=== PATIENT | female | born 1960 | race Caucasian/White ===

== ENCOUNTER 2017-09-07 15:26 | Inpatient (IN) | payer OTHER ==
[2017-09-07] MEDS ORDERED: hydrOXYzine HCL 25 MG TAB PO PRN (18:04)
[2017-09-07] MEDS ORDERED: ACETAMINOPHEN 500 MG TAB PO PRN (18:06)
[2017-09-07] MEDS ORDERED: ONDANSETRON 4 MG/2 ML VIAL IVP PRN (18:06)
[2017-09-07] MEDS ORDERED: HYDROmorphone HCL/NS 0.5 MG/ML SYR IVP PRN (18:06)
[2017-09-07] MEDS: oxyCODONE IR 5 MG TAB PO PRN ×2 (18:33→22:30)
--- NOTE | 2017-09-07 19:23 | GHP ---
[f rep st] HISTORY AND PHYSICAL DATE OF ADMISSION: 09/07/2017 CHIEF COMPLAINT: Jaundice. HISTORY: The patient is a 57-year-old female who was diagnosed with breast cancer 10 years ago. She underwent a lumpectomy. Tamoxifen was recommended, but she had a very difficult time tolerating it due to side effects. She has been getting mammograms every 6 months and had a clean mammogram 1 year ago. About 2 weeks ago, she did notice some abdominal GI upset and new onset jaundice. She was subsequent ly found to have extensive liver metastases, as well as widely metastatic bone tumors. She underwent a liver biopsy last Tuesday at [facility] and pathology is still pending. She has also been found to have tumors in her bilateral breasts. She underwent an ERCP at [facility] with Dr. Madrigal, an d had a bile duct stent. Her bilirubin started at 12, went down to 10, but is now back up to 13. Leslie regalado does not have any bone pain, except for in her head and neck, and she has been using oxycodone. She was directly admitted by Dr. Garcia today because he needs to get her bilirubin down lower in or godfrey to initiate chemotherapy. He is consulting Dr. Annemarie Pugh to see the patient regarding any surg ical options to improve her bilirubin. Yesterday she noticed a new difficulty with speech as well as increasing numbness on the left side of her face and mouth. Dr. Garcia recommends MRI of the brain as there is high suspicion for brain me tastases. PAST MEDICAL HISTORY: Breast cancer 10 years ago status post lumpectomy, tamoxifen poorly tolerated due to side affects, has been followed very closely since then for recurrence. MEDICATIONS: Please see computer record for full detailed list. ALLERGIES: Quinolones and sulfa. SOCIAL HISTORY: She smoked from age [age]. She drinks 2-3 glasses of wine per day. She lives with her . Her is from [place], and they were living there, moved back to the [place] 3 years ago. She has 2 children, ages 22 and 19. 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 REVIEW OF SYSTEMS: Complete review of systems obtained. Review of systems negative for constitution al, HEENT, GI, pulmonary, cardiovascular, , hematology, skin, muscular, endocrine, psych, except fo r positives as per HPI. FAMILY HISTORY: Reviewed, noncontributory to presenting complaint. PHYSICAL EXAMINATION: GENERAL: Well-developed, well-nourished female, no acute distress. VITAL SIG NS: Temperature is 36.6, pulse 94, blood pressure 136/83, saturating 96% on room air. EYES: Sclera l icterus. Pupils equal and reactive to light. ENT: Normal ears and nose. Hearing intact. Some p ossible oral thrush. Oropharynx is moist. NECK: Trachea midline. No thyromegaly. CHEST: Normal respiratory effort. LUNGS: Clear to auscultation bilaterally. CARDIOVASCULAR: Regular rhythm. No murmur. EXTREMITIES: No lower extremity edema. ABDOMEN: Soft, nontender. I do not appreciate mu ch hepatomegaly. SKIN: Jaundiced. Otherwise without rash or wound. MUSCULOSKELETAL: No cyanosis or clubbing. NEUROLOGICAL: Strength is 5/5 upper and lower extremities. Cranial nerves: Her tongu e has a very remarkable deviation to the right and there is some numbness on the left side of her fac e. No other numbness throughout. PSYCH: Alert and oriented x3. Normal mood, affect. Normal judgm ent, insight. Normal memory. 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 LABORATORY DATA: White count 8.78, hematocrit 34.5, platelets 404. Sodium 138, potassium 4.1, chlor dale 105, bicarb 20, BUN 13, creatinine 0.6, glucose 104, AST 73, ALT 77. Total bilirubin 15.3, conju gated bilirubin 13.4. Viral hepatitis panel is negative. This case was discussed with Dr. Mitch Garcia regarding inpatient plan. PLAN/ASSESSMENT: 1. Elevated bilirubin. The goal of hospitalization is to get the bilirubin down so that Dr. Garcia can initiate chemotherapy. She has already undergone ERCP with biliary stent placement by Dr. Paul hansen at [facility]. We may need to consult our Gastroenterology group, but first we will consult Dr. Samm rhodes to see if there are any surgical options. 2. Liver and bone metastases which is suspected to be recurrence of breast cancer. Biopsy from [facility] is still pending. Dr. Sheets has been called to see her in consultation. 3. Tongue deviation and dysarthria. This his highly concerning for brain metastases. We will check an MRI of the brain. Depending on finding, we may need to initiate IV Decadron. CODE STATUS: Full. ADMISSION STATUS: 1. Will admit to inpatient as she is medically complex. Anticipate greater than 2 midnights require d for stabilization. 2. DVT prophylaxis. She is high risk and Lovenox should be initiated once any chance of procedures is ruled out. /[id number]/MODL
[2017-09-07] MEDS ORDERED: GADOBUTROL 10 ML VIAL IVP ONE (20:16)
[2017-09-07] MEDS: NYSTATIN SUSP 500000 UNIT/5 ML UDCUP PO SCH (21:41)
[2017-09-08] MEDS: hydrOXYzine HCL 25 MG TAB PO PRN ×3 (01:28→21:47)
[2017-09-08] MEDS: NYSTATIN SUSP 500000 UNIT/5 ML UDCUP PO SCH ×4 (05:39→21:47)
[2017-09-08] MEDS: oxyCODONE IR 5 MG TAB PO PRN ×4 (05:39→21:48)
[2017-09-08 06:54] LABS: PLATELET COUNT 395 10^3/uL (150-400)
[2017-09-08 06:59] LABS: INR 0.87 (0.83-1.16)
[2017-09-08] MEDS ORDERED: ENOXAPARIN 40 MG/0.4 ML SYR SC SCH (09:00)
[2017-09-08] MEDS: buPROPion XL 150 MG TAB PO SCH (09:44)
[2017-09-08] MEDS: DULoxetine 30 MG CAP PO SCH (09:44)
[2017-09-08] MEDS: Desvenlafaxine Succinate [Pristiq] 25 MG PO SCH (09:44)
--- NOTE | 2017-09-08 10:51 | GCON ---
[f rep st] CONSULTATION CHIEF COMPLAINT: Metastatic cancer. HISTORY OF PRESENT ILLNESS: The patient is a 57-year-old woman with a history of breast cancer approximately 10 years ago. She was treated with lumpectomy. She was unable to tolerate tamoxifen. Approximately 2 weeks ago, she developed jaundice and began workup for her jaundice. In retrospect, she has also had pain on her left neck, going up to her head, as well as shifting more often in her chair. She had workup starting at [facility], which included an ultrasound and a CT scan. On the CT scan, it showed intrahepatic ductal dilatation. It showed tapering near the shaina and about 10-15 liver metastases. Her gallbladder is surgically absent. She was admitted to [facility], and Dr. Hunter Madrigal performed an ERCP. The ERCP report showed that there was possible extrinsic compression with resultant partial intrahepatic biliary obstruction. He did a sphincterotomy and placed a 10-[place] 12 cm [place] stent across the shaina into the right hepatic lobe and a 7-[place] 9 cm [place] stent across the shaina. Her bilirubin initially went from 12 down to 10, but it is now elevated again. She was directly admitted to the hospital by Dr. Garcia. I was consulted to see if there was a surgical option for her. In addition, last night, she also had a brain MRI, which showed likely osseous metastatic disease in the upper cervical spine and the clivus. No infarct, subtle asymmetric meningeal enhancement on the right side, and then there is an unusual asymmetric focus in the anterior right middle cranial fossa. Her LFTs, today, the total bilirubin 13.9, conjugated 12.2, AST 94, ALT 106, alkaline phosphatase 1609. Her lipase is normal. PAST MEDICAL HISTORY: Breast cancer. PAST SURGICAL HISTORY: Lumpectomy. ALLERGIES: Quinolones and sulfa. SOCIAL HISTORY: She smoked from ages [age]. She does drink wine daily. She lives with her . REVIEW OF SYSTEMS: She is complaining of dysarthria. Ten-point review of systems negative, except per HPI. PHYSICAL EXAMINATION: VITAL SIGNS: 36.7, 77, 109/71, 16, 94% on room air. GENERAL: Pleasant, well-nourished, well-groomed woman sitting up in bed. HEENT : Scleral icterus. Pupils equal and round. Normocephalic. Mucous membranes moist. No gross hearing deficits. NEURO: To me, she is not dysarthric, although the patient is complaining of her tongue feeling different. LUNGS: Clear to auscultation bilaterally. No increased work of breathing. CARDIAC: Regular rate. No peripheral edema. ABDOMEN: Her bowel sounds are present. She is soft. She is nontender. SKIN: Jaundice. She also has a few tattoos. PSYCHIATRIC: Upbeat mood and affect, despite prognosis. Results reviewed. Please see HPI. IMPRESSION AND PLAN: A 57-year-old woman with elevated bilirubin. This could be metastatic disease due to her breast cancer vs a new primary. The pathology at [facility] is still pending. I personally discussed the case with Dr. Ashlyn Sheets, who will call the pathologist at [facility]. I also discussed the case with Dr. Greer. We will order a HIDA scan. This will help us know if there is filling in the duodenum, as well as uptake in the liver. I personally reviewed her images from [facility], as well as her PET-CT from [facility] yesterday. I can see the liver metastasis. I did not see a large external compression at the shaina. I would like to explore other options because this may not be an external issue creating her elevated bilirubin. I am concerned that if I take her to the operating room, this would be an open surgery and have increased healing time, which could delay chemotherapy. Furthermore, without a specific target, this also may not be helpful. Surgery may be needed in the future. I have also put in a call to Dr. Alarcon, and with the information from the HIDA scan, another option may be an internal-external drain. The other option may be a chemotherapy that is not hepatically metabolized. She clearly has liver and bone metastases and possible issues with meningeal enhancement. I will continue to follow. I did holy cross back with the patient and let her know that I personally reviewed the images from [facility], information from [facility], including the ERCP report, the PET scan from [facility]. Dr. Greer is also going to discuss the case with Dr. De Anda and possibly set up for another ERCP and see if the left hepatic duct can be stented. I will be on standby /[id number]/MODL MTDD
--- NOTE | 2017-09-08 10:55 | PDMN ---
Medical Necessity Medical necessity: Patient meets inpatient criteria per physician note and [facility] [place] [facility] (previously diagnosed breast cancer 10 years ago, recently discovered extensive hepatic and osseous metastatic disease, now w/new onset speech difficulty, L face/mouth numbness, tongue deviation; elevated bilirubin/ hoping to decrease to initiate chemotherapy; anticipated LOS > 2 midnights for poss brain mets, HIDA scan, surgical consult, hopefully initiation of chemotherapy.)
[2017-09-08] MEDS: [UNRECOGNIZED DRUG - OTHER] PO SCH (11:36)
[2017-09-08] MEDS ORDERED: ALTEPLASE 2 MG VIAL IVP PRN (11:37)
--- NOTE | 2017-09-08 11:56 | ASMTCMCOM ---
CM Note CM Note Notes: Pt admitted w/elevated bilirubin and per H&P found to have liver and bone metastases. Liver bx done at [facility] recently and pending. She has hx of breat cancer 10 years ago. She is also found to have bilat breast tumors per H&P. She is still being worked up; will get PICC today, have hida scan, and LP. Pt lives at home w/, has 2 kids- ages 22, 19. DC needs to be determined. CM will follow. Date Signed: 09/08/2017 11:55 AM Electronically Signed By:Charis Smith RN
[2017-09-08] MEDS ORDERED: [UNRECOGNIZED DRUG - OTHER] IV SCH (12:00)
[2017-09-08] MEDS ORDERED: MAGNESIUM SULFATE IV SCH (12:00)
[2017-09-08] MEDS ORDERED: KCL IV SCH (12:00)
[2017-09-08] MEDS ORDERED: NS W IV SCH (12:00)
--- NOTE | 2017-09-08 13:07 | GCON ---
[f rep st] CONSULTATION NEW PATIENT CONSULT PRIMARY ONCOLOGIST: Dr. Mitch Garcia. REASON FOR CONSULTATION: Patient with possible metastatic breast cancer, admitted for hyperbilirubinemia. HISTORY OF PRESENT ILLNESS: Patient is a 57-year-old postmenopausal woman who was originally seen by Dr. Mitch Garcia on August 30, 2017. Patient's PCP, Dr. Prakash Alcala, referred patient to Dr. Mitch Garcia early in August. She was seen on an urgent basis. The patient reports she began to have symptoms she attributed to gas and indigestion June of 2017. Approximately 3 weeks prior to presentation, she began to have itching and then noticed that she had become somewhat jaundice. She also noticed that her urine has become very orange and her stools had become very light color. She was evaluated with an ultrasound and CT scan showing multiple hepatic metastases and bony metastases also, although the patient did not complain of any pain. She had had a 7 kg weight loss over the past several weeks, and appetite had been poor with early satiety. She reported to Dr. Garcia that 10 years prior, she had breast cancer in her right breast. 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 This was treated with a lumpectomy and a reduction on the left. She also reports she had a sentinel lymph node biopsy which was negative. She did not have any radiation and was not offered any chemotherapy and she took tamoxifen for only 2-3 months due to side effects. She was referred to Dr. Hunter Madrigal who arranged for a liver biopsy. This was done at [facility] on 08/31/2017, that showed poorly differentiated adenocarcinoma. Tumor cells expressed espinoza cytokeratin and GATA3. They do not express mammaglobin or GCDFP 15, although these findings are nonspecific. Pathology thought patient's history of breast cancer favored metastatic breast carcinoma. ER/ME, Ki-67, and HER2 by FISH are currently pending, unfortunately. Patient notes that her last mammogram was done through [facility] last year and was reportedly normal. Patient followed up with Dr. Garcia on 09/07/2017. She also had undergone an ERCP on 09/02/2017, due to rising bilirubin. She had a stent placed in her liver across a possible obstruction, although not certain that this was extrinsic. Dr. Madrigal with GI said it was a difficult procedure and that he believed the 2 stents he placed were in the right hepatic lobe and not the left. When patient saw Dr. Garcia yesterday, she was reporting some difficulty with speaking. She reports that her tongue is heavy and was having difficulty with speech. Dr. Garcia reviewed with the patient the PET-CT that was most recently done that showed bilaterally metabolically active lesions in the outer right and left breast which warranted further followup with ultrasound and diagnostic mammogram. Presumed diffuse metastatic disease to the spinal column, pelvis, bilateral proximal femurs, bilateral proximal humeri , bilateral scapula and sternum, a lytic lesion in the left acetabular roof, risk for pathologic fracture. No pathologic compression fractures. Six metabolically active liver lesions noted. Temporary biliary stent noted in good position. Suspect subtle metastasis to the left adrenal gland. The patient's bilirubin yesterday continued to trend up at 15.3, so patient was admitted for further workup and evaluation. PAST MEDICAL HISTORY: Breast cancer, right breast, approximately 10 years ago, treated in [facility]. Details are unclear at this time, but she did receive a lumpectomy with mammoplasty, as well as reduction mammoplasty on the left. No other significant past medical history. SOCIAL HISTORY: Former tobacco smoker. She currently lives in the [facility] between [place]. She is . Moderate alcohol use. No illicit drugs. FAMILY HISTORY: Grandmother with bladder cancer. Father with CLL, squamous cell carcinoma of the skin, and bladder cancer. Mother of lung cancer. No family history of melanoma. MEDICATIONS: Have been reviewed in the EMR and include Tylenol, bupropion, duloxetine, and p.r.n. pain medications. REVIEW OF SYSTEMS: GENERAL: Patient elicits weight loss. Denies fevers. HEENT: She does report some dysarthria and heavy tongue. LUNGS: She denies any shortness of breath or cough. GI: Denies any nausea, vomiting, or constipation. Denies any abdominal bloating. MUSCULOSKELETAL: Denies any acute bone pain. EXTREMITIES: Denies any lower extremity edema. PHYSICAL EXAM: VITAL SIGNS: Blood pressure 109/71, heart rate 77, respiratory rate 16, O2 saturation 94% on room air, temp is 36.7. GENERAL: A 57-year-old woman looks her stated age, not in acute distress. HEENT: Scleral icterus. Oropharynx is clear. HEART: Regular rate and rhythm. LUNGS: Clear to auscultation bilaterally. ABDOMEN: Soft. No enlarged spleen or liver. LOWER EXTREMITIES: No edema. BREAST: Performed today. I am feeling AN abnormal mass in the right breast upper quadrant almost central, as well as the right lower outer quadrant of the breast. I am also feeling A contralateral mass in the left breast upper outer quadrant. No associated axillary lymphadenopathy. NEUROLOGIC: Tongue deviates to the right and very mild dysarthria. Otherwise, she is moving all extremities. No other cranial nerve deficits. LABS: White blood cell count 7.2, hemoglobin 11.5, hematocrit 34.7, platelet count of 395,000. INR 0.87. Sodium 139, potassium 3.9, creatinine 0.7, total bilirubin 13.9, conjugated bilirubin 12.2. AST 94, ALT 106, alkaline phosphatase 1609, total protein 6, albumin 3.1, lipase 120. IMAGING: The patient has had a brain MRI here suspecting osseous metastatic disease with involvement of portions of the osseous calvarium, upper cervical spine, and possibly posterior clivus. No evidence of acute or subacute infarction. Appears to be some subtle asymmetric meningeal enhancement, particularly on the right side, and unusual asymmetric focus of blooming artifact in the anterior right middle cranial fossa of uncertain significance. ASSESSMENT AND PLAN: A 57-year-old woman with a history of early stage breast cancer who now presents with diffuse liver metastases showing poorly differentiated adenocarcinoma, who presents with hyperbilirubinemia. 1. Hyperbilirubinemia. This is somewhat acute. Patient had an endoscopic retrograde cholangiopancreatography with stenting in the right hepatic lobe, but bilirubin continues to rise. There is no large external compression at the shaina hepatis by previous scans. I would imagine this is all diffuse intrinsic obstruction due to liver metastases in general. Have discussed her case with Dr. Annemarie Gregg. I am not sure an internal/external drain will be that much help, although possible. I think mainstay of treatment right now should be chemotherapy for the visceral disease to see if we could reverse the liver dysfunction. While we are pending final pathology, my plan would be to start her at cisplatin 75 mg/m2 over 2 days for tolerability and will pre and post hydrate, as well as give pre and post electrolytes. She will need a peripherally inserted central catheter line placed today which has been ordered. Will follow her cautiously in the hospital and see if her bilirubin starts to decline and can tailor treatment appropriately. 2. Presumed metastatic breast cancer. Reviewed pathology myself from [facility] showing a poorly differentiated adenocarcinoma. ER/ME, Ki-67, and HER2 by FISH pending. This certainly does fit the picture of metastatic breast cancer, although very aggressive acutely. PET-CT shows no other obvious sources of primary. She has bilateral breast masses with SUV uptake. While we are waiting for liver biopsy, I think important to get a biopsy of one of the breast masses to make sure it is concordant with the final pathology from the liver and will hope to arrange this today. She will need a mammogram with ultrasound guided biopsy if we can arrange. 3. Dysarthria and abnormality on MRI. Very concerning for leptomeningeal disease. Will need an LP for cerebrospinal fluid with cytology. I think there is a high likelihood of LP dz but another thought would be to look at a facial MRI to see if there are any bony osseous metastases that are possibly entrapping a cranial nerve - I have seen this presentation a few times as well. With isolated cranial neuropathy, if she was discovered to have leptomeningeal disease, I would favor cranial irradiation alone. She has no lower extremity weakness or bladder or bowel dysfunction to suggest spinal dz and could possibly avoid lumbosacral spine radiation as of now, but at some point during her hospitalization, I would get an MRI of the cervical, thoracic, and lumbar spine. Once we get all procedures done today, we will move forward later today or early in the morning with the initiation of chemotherapy. Patient and are well informed, had good questions. Over an hour and a half was spent with patient, more than 50% of the time counseling and coordinating care, discussion with Alexis, as well as Dr. Gregg. /[id number]/MODL MTDD
[2017-09-08] MEDS ORDERED: LIDOCAINE 1% 300 MG/30 ML SDV ONE ×2 (13:27→14:17)
[2017-09-08] MEDS: POTASSIUM CL IV SCH (13:30)
[2017-09-08] MEDS: MAGNESIUM SULFATE IV SCH (13:30)
[2017-09-08] MEDS: NS IV SCH (13:30)
--- NOTE | 2017-09-08 14:40 | HOSPPROG ---
Hospitalist Progress Note Assessment/Plan: 57y female directly admitted for further workup and treatment regarding abnormal liver function. First encounter, chart reviewed. D/W Dr Benjamin and radiology. # hyperbilirubinemia -HIDA shows patent stents -appreciate Dr. Cano consult -PICC line -liver biopsy pending -likely related to metastatic disease -will need chemotherapy # presumed metastatic breast cancer -will need breast biopsy -mammographies ordered -discussed with Radiology # abnormal MRI of brain -LP today -concern for metastatic process # disposition -unclear -patient needs multiple diagnostic studies -continue supportive care -likely initiate chemotherapy per Oncology Subjective: Feeling overwhelmed. at bedside. Objective: Vital Signs Temp Pulse Resp BP Pulse Ox 36.7 C 77 16 109/71 94 09/08/17 07:10 09/08/17 07:10 09/08/17 07:10 09/08/17 07:10 09/08/17 07:10 Laboratory Results 09/08/17 06:25 09/08/17 06:25 09/07/17 09/08/17 09/09/17 05:59 05:59 05:59 Intake Total 500 Balance 500 PT 12.0 SEC (12.0-15.0) 09/08/17 06:25 INR 0.87 (0.83-1.16) 09/08/17 06:25 - Physical Exam Constitutional: no apparent distress, appears nourished, not in pain Eyes: PERRL, EOMI, icteric sclera Ears, Nose, Mouth, Throat: moist mucous membranes, hearing normal, ears appear normal Cardiovascular: No JVD, No tachycardia, No edema Respiratory: no respiratory distress, no rales or rhonchi, clear to auscultation Gastrointestinal: tenderness, distension, No ascites Skin: warm, normal color, No mottled Musculoskeletal: normal joint ROM, no joint effusions, generalized weakness Neurologic: AAOx3 Psychiatric: interacting appropriately, not anxious, not encephalopathic, thought process linear ICD10 Worksheet Patient Problems: Problems Problem Status Onset Liver mass Acute - ICD10 Problem Qualifiers (1) Liver mass
--- NOTE | 2017-09-08 18:05 | SOAPPROG ---
BETHEL Progress Note Assessment/Plan: Assessment:Plan: see full dictated consult to follow 57 y/o female with possible obstructive jaundiced from metastatic disease ERCP images from [facility] do not show the left hepatic system only right system appears to be stented with plastic stents May need metal stent for palliation. ERCp and possible stent placement on Tuesday with Dr. Neetu Greer MD 09/08/17 18:01 Objective: Vital Signs Temp Pulse Resp BP Pulse Ox 36.4 C 82 17 133/81 H 93 09/08/17 17:12 09/08/17 17:12 09/08/17 17:12 09/08/17 17:12 09/08/17 17:12 Microbiology 09/08/17 14:20 Gram Stain - Final Cerebral Spinal Fluid Laboratory Results 09/08/17 06:25 09/08/17 06:25 09/07/17 09/08/17 09/09/17 05:59 05:59 05:59 Intake Total 500 Balance 500 PT 12.0 SEC (12.0-15.0) 09/08/17 06:25 INR 0.87 (0.83-1.16) 09/08/17 06:25 ICD10 Worksheet Patient Problems: Problems Problem Status Onset Liver mass Acute
[2017-09-09] MEDS: MAGNESIUM SULFATE IV SCH ×2 (00:37→21:55)
[2017-09-09] MEDS: NS IV SCH ×2 (00:37→21:55)
[2017-09-09] MEDS: POTASSIUM CL IV SCH ×2 (00:37→21:55)
[2017-09-09] MEDS: oxyCODONE IR 5 MG TAB PO PRN ×4 (01:48→22:06)
[2017-09-09] MEDS: hydrOXYzine HCL 25 MG TAB PO PRN ×2 (01:48→22:05)
[2017-09-09] MEDS: NYSTATIN SUSP 500000 UNIT/5 ML UDCUP PO SCH ×4 (08:11→21:55)
--- NOTE | 2017-09-09 10:06 | GCON ---
[f rep st] CONSULTATION DATE OF CONSULTATION: 09/08/2017 REFERRING PHYSICIAN: Josie Espinoza NP REQUESTING PROVIDERS: Josie Espinoza NP; Annemarie Pugh MD. REASON FOR CONSULTATION: Possible obstructive jaundice. 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 She was treated with tamoxifen for only a few months secondary to side effects and had no other issue with her disease until recently. Approximately 3-4 weeks prior to ad mission, she started to recognize pruritus and jaundice. Her stool became very light, and urine minh me very dark. She had an ultrasound and CT scan that showed multiple hepatic metastases and bony met astases. She was referred over to [facility] where Hunter Madrigal arranged for liver biopsy, wh ich revealed poorly differentiated adenocarcinoma. She underwent an ERCP on September 02 over at [facility] had stents placed near the shaina hepatis. Upon reviewing the images, it appears that they have onl y opacified the right biliary system and not the left biliary system. In addition, Dr. Madrigal thulises ght that he only placed 2 stents in the right hepatic lobe. She is going to be undergoing chemothera py in the near future for presumed metastatic breast cancer, and her elevated bilirubin would interfe re with some of the chemotherapy. We were contacted to help see if there is a possibility of stentin g of her biliary system to improve her bilirubinemia. She denies any pain. She has no fevers, chill s, or sweats. She has no shortness of breath. She has had approximately 15-pound weight loss over t he last couple months. I am now here to help evaluate and treat presumed obstructive jaundice. PAST MEDICAL HISTORY: Breast cancer, right breast, 10 years ago, treated in [facility]. PAST SURGICAL HISTORY: Lumpectomy, mammoplasty, reduction mammoplasty on the left. FAMILY HISTORY: Grandmother with bladder cancer. Father with CLL and squamous cell carcinoma of the skin and bladder cancer. Mother of lung cancer. She did not know of any colon cancer or colon polyps. SOCIAL HISTORY: She quit tobacco a number of years ago; she smoked tobacco up until age 20. She has moderate alcohol use. No illicit drugs. MEDICATIONS: At home included Tylenol, bupropion, duloxetine, and p.r.n. medications. In hospital, she is written for Tylenol p.r.n., Wellbutrin 150 mg daily, Cymbalta 30 mg daily, Lovenox 40 mg subcu daily, hydromorphone p.r.n., hydroxyzine p.r.n. itching, nystatin oral liquid 500,000 units p.o. q.i .d., Zofran p.r.n., oxycodone p.r.n. ALLERGIES: Quinolones and sulfa. REVIEW OF SYSTEMS: A complete review of systems was performed and is negative, other than noted in t he HPI. PHYSICAL EXAM: GENERAL: Well developed, well nourished, sitting in bed, in no acute distress. MARYLOU L SIGNS: Blood pressure 109/71, pulse 77, respirations 16, 94% on room air, temperature 36.7. EYES: Icteric, TSARR, EOMI. MOUTH: No lesions. NECK: Supple. Full range of motion. No JVD. BACK: N o spine tenderness. No CVA tenderness. LUNGS: Clear. CARDIAC: S1, S2. Regular rate and rhythm. No murmurs, rubs or gallops appreciated. ABDOMEN: Bowel sounds are normal in pitch and frequency. Abdomen was soft, nontender. No splenomegaly. EXTREMITIES: No cyanosis, clubbing, or edema. NEUR OLOGIC: Cranial nerves intact. SKIN: Jaundice, but no stigmata of advanced liver disease. LABORATORY DATA: From the , WBC 7.2, hemoglobin 11.5, hematocrit 34.7, platelet count 395. Pro time 12.0, INR 0.87. Sodium 139, potassium 3.9, chloride 103, bicarb 19, BUN 12, creatinine 0.7, tot al bilirubin 13.9, unconjugated 1.7, AST 94, ALT 106, alkaline phosphatase 1609, total protein 6.0, a lbumin 3.1, lipase 120. Brain MRI from September 07, 2017: Osseous metastatic disease. No evidence of ac reza or subacute infarction. Subtle asymmetric meningeal enhancement, particularly in the right side. CSF analysis may be considered for additional evaluation to include carcinomatosis. HIDA scan perf ormed September 08, 2016 shows that the contrast does reach the bowel within 11 minutes, persistent cardiac uptake on delayed series, which could be related to hepatic function or sequelae of poor biliary fercho inage. My review of the imported ERCP images show opacification of the right biliary system only and not of the left biliary system at all. The stents are plastic stents. They are not metal stents. ASSESSMENT: A 57-year-old female with probable metastatic breast cancer with hyperbilirubinemia and abnormal imaging studies consistent with biliary obstruction. RECOMMENDATIONS: 1. Trying to arrange ERCP with stenting of her left hepatic lobe and possible removal of the plastic stent in the right hepatic lobe and replacement with a metallic stent. 2. Treatment of her other medical illnesses per Oncology and hospitalists. 3. I have spoken to oncologist, who will hold on any chemotherapy pending the scheduling of ERCP and possible stent placement. Thank you for allowing me to participate in the patient's healthcare. Do not hesitate to call me wit h any questions. /[id number]/MODL
[2017-09-09] MEDS ORDERED: LIDOCAINE 1% 300 MG/30 ML SDV ONE (10:18)
[2017-09-09] MEDS: buPROPion XL 150 MG TAB PO SCH (11:49)
[2017-09-09] MEDS: DULoxetine 30 MG CAP PO SCH (11:49)
[2017-09-09] MEDS: Desvenlafaxine Succinate [Pristiq] 25 MG PO SCH (11:50)
[2017-09-09] MEDS: [UNRECOGNIZED DRUG - OTHER] PO SCH (12:14)
[2017-09-09] MEDS: ENOXAPARIN 40 MG/0.4 ML SYR SC SCH (12:14)
--- NOTE | 2017-09-09 13:16 | HOSPPROG ---
Hospitalist Progress Note Assessment/Plan: 57y female directly admitted for further workup and treatment regarding abnormal liver function. # hyperbilirubinemia -HIDA shows patent stents -appreciate Dr. Pugh consult -PICC line -liver biopsy pending -likely related to metastatic disease -will need chemotherapy -appreciate GI consult -ERCP today # presumed metastatic breast cancer -breast biopsy today -mammographies # abnormal MRI of brain -LP done -concern for metastatic process # disposition -unclear -patient needs multiple diagnostic studies -continue supportive care -likely initiate chemotherapy per Oncology Subjective: Feeling good. No pain. Not hungry. No specific issues. Objective: Vital Signs Temp Pulse Resp BP Pulse Ox 36.8 C 91 16 113/71 93 09/09/17 11:43 09/09/17 11:43 09/09/17 11:43 09/09/17 11:43 09/09/17 11:43 Microbiology 09/08/17 14:20 Gram Stain - Final Cerebral Spinal Fluid Laboratory Results 09/08/17 06:25 09/08/17 06:25 09/08/17 09/09/17 09/10/17 05:59 05:59 05:59 Intake Total 500 Output Total 2458 Balance 500 -2458 PT 12.0 SEC (12.0-15.0) 09/08/17 06:25 INR 0.87 (0.83-1.16) 09/08/17 06:25 - Physical Exam Constitutional: appears nourished, not in pain, chronically ill appearing Eyes: PERRL, EOMI, icteric sclera Ears, Nose, Mouth, Throat: moist mucous membranes, hearing normal, ears appear normal Cardiovascular: No JVD, No tachycardia, No edema Respiratory: no respiratory distress, no rales or rhonchi, clear to auscultation Gastrointestinal: tenderness, hepatosplenomegally, distension, No ascites, No guarding Skin: warm, No normal color, No mottled Musculoskeletal: normal joint ROM, no joint effusions, generalized weakness Neurologic: AAOx3 Psychiatric: interacting appropriately, not anxious, not encephalopathic, thought process linear ICD10 Worksheet Patient Problems: Problems Problem Status Onset Liver mass Acute - ICD10 Problem Qualifiers (1) Liver mass
[2017-09-09] MEDS ORDERED: GLUCAGON HCL 1 MG VIAL ONE (13:43)
[2017-09-09] MEDS ORDERED: IOTHALAMATE MEG (CONRAY) 50 ML VIAL IV ONE (13:43)
--- NOTE | 2017-09-09 14:36 | SOAPPROG ---
SOAP Progress Note Assessment/Plan: Assessment/Plan: 57 yo woman w hx of early breast ca in 2006 now with metastatic poorly differentiated adenocarcinoma (presumably breast) who p/w diffuse liver mets/hyperbilirubinemia and dysarthria 1. Hyperbilirubinemia - Appreciate GI [facility] will attempt to place another stent in left side of liver if obx area discovered If not successful or deemed that this is all diffuse intrinsic obx, favor starting cisplatin tomorrow (orders written) If obx found, may trend bili out a few days and see if we can give her a more favorable regimen (dose dense AC) antibiotics after procedure and watch for pancreatitis 2. Presumed metastatic breast ca - given pending path and no previous breast bx , got MMG + US yesterday discovered 2.5cm mass in left out breast at 3 o'clock; this was biopsied yesterday and path pending Path from liver bx w poorly differentiated adeno, biomarkers and Ki67 pending PET CT as outpt shows no other obvious source of primary 3. Dysarthria w subtle MRI findings - LP done yesterday completely clear, cytology pending MRI w osseus lesion in posterior clivus, and I feel that this is causing some entrapment of CN XII which would explain her symptoms (Dr Lim agrees) This should improve somewhat w systemic treatment but if Sx worsen, could consider radiation No further neuro changes today No further imaging at this time Will follow and make treatment recommendations as appropriate 09/09/17 14:41 09/09/17 14:46 Subjective: No acute events Objective: Vital Signs Temp Pulse Resp BP Pulse Ox 36.8 C 91 16 113/71 93 09/09/17 11:43 09/09/17 11:43 09/09/17 11:43 09/09/17 11:43 09/09/17 11:43 Microbiology 09/08/17 14:20 Gram Stain - Final Cerebral Spinal Fluid Laboratory Results 09/08/17 06:25 09/08/17 06:25 09/08/17 09/09/17 09/10/17 05:59 05:59 05:59 Intake Total 500 Output Total 2458 Balance 500 -2458 PT 12.0 SEC (12.0-15.0) 09/08/17 06:25 INR 0.87 (0.83-1.16) 09/08/17 06:25 Gen - NAD HEENT - icterus still present CV - RRR Abd - soft, NT, BS+ Ext - no edema Neuro - tongue deviation to R ICD10 Worksheet Patient Problems: Problems Problem Status Onset Liver mass Acute
[2017-09-09] MEDS ORDERED: LR 1,000 ML IV ONE (15:18)
[2017-09-09] MEDS ORDERED: MIDAZOLAM 2 MG/2 ML VIAL IVP ONE (17:17)
--- NOTE | 2017-09-09 17:17 | PDANEPAE ---
ANE History of Present Illness ercp ANE Past Medical History - Cardiovascular History Hx Hypertension: No Hx Arrhythmias: No Hx Chest Pain: No Hx Coronary Artery / Peripheral Vascular Disease: No Hx CHF / Valvular Disease: No Hx Palpitations: No - Pulmonary History Hx COPD: No Hx Asthma/Reactive Airway Disease: No Hx Recent Upper Respiratory Infection: No Hx Oxygen in Use at Home: No Hx Sleep Apnea: No Sleep Apnea Screening Result - Last Documented: Negative - Neurologic History Hx Cerebrovascular Accident: No Hx Seizures: No Hx Dementia: No - Endocrine History Hx Diabetes: No Hypothyroid: No Hyperthyroid: No - Renal History Hx Renal Disorders: No - Liver History Hx Hepatic Disorders: Yes - Neurological & Psychiatric Hx Hx Neurological and Psychiatric Disorders: No - Cancer History Hx Cancer: Yes - GI History GERD: no - Chronic Pain History Chronic Pain: No ANE Review of Systems Review of Systems: - Exercise capacity Exercise capacity: >=4 METS ANE Patient History - Allergies Allergies/Adverse Reactions: levofloxacin Allergy (Verified 09/07/17 17:38) Anaphylaxis Sulfa (Sulfonamide Antibiotics) Allergy (Verified 09/07/17 17:38) Hives - Home Medications Home Medications: DULoxetine [Cymbalta 30 MG (*)] 30 mg PO DAILY 09/07/17 [Last Taken Unknown] Desvenlafaxine Succinate [Pristiq ER] 25 mg PO DAILY 09/07/17 [Last Taken Unknown] T3/T4 Compounded 1 ea PO DAILY 09/07/17 [Last Taken Unknown] buPROPion XL [Wellbutrin Xl] 150 mg PO DAILY 09/07/17 [Last Taken Unknown] hydrOXYzine HCL [hydrOXYzine HCL (RX)] 25 mg PO Q4 PRN 09/07/17 [Last Taken Unknown] oxyCODONE IR [Oxycodone Ir (*)] 5 - 10 mg PO Q4 PRN 09/07/17 [Last Taken Unknown ] - NPO status NPO Status: no food or drink >8 hours NPO Since - Liquids (Date): 09/09/17 NPO Since - Liquids (Time): 13:00 NPO Since - Solids (Date): 09/09/17 NPO Since - Solids (Time): 00:00 - Smoking Hx Smoking Status: Former smoker ANE Labs/Vital Signs - Labs Result Diagrams: 09/08/17 06:25 09/08/17 06:25 - Vital Signs Blood Pressure: 124/76 Heart Rate: 85 Respiratory Rate: 16 O2 Sat (%): 94 Height: 170.18 cm Weight: 63.9 kg ANE Physical Exam - Airway Mallampati Score: Class 2 Mouth exam: normal dental/mouth exam - Pulmonary Pulmonary: no respiratory distress - Cardiovascular Cardiovascular: regular rate and rhythym - ASA Status ASA Status: II ANE Anesthesia Plan Anesthesia Plan: general endotracheal anesthesia
[2017-09-09] MEDS ORDERED: LIDOCAINE 2% 5 ML SDV ONE (17:20)
[2017-09-09] MEDS ORDERED: ROCURONIUM 50 MG/5 ML VIAL ONE (17:21)
[2017-09-09] MEDS ORDERED: DEXAMETHASONE 4 MG/ML VIAL ONE (17:21)
[2017-09-09] MEDS ORDERED: ONDANSETRON 4 MG/2 ML VIAL ONE (17:21)
[2017-09-09] MEDS ORDERED: PROPOFOL 200 MG/20 ML VIAL ONE (17:22)
[2017-09-09] MEDS ORDERED: fentaNYL 100 MCG/2 ML INJ ONE (17:22)
[2017-09-09] MEDS ORDERED: INDOMETHACIN 50 MG SUPP PR ONE ×2 (17:30→17:45)
[2017-09-09] MEDS ORDERED: PIPERACILLIN/TAZO 3.375 GM/DEX 50 ML IV ONE (17:45)
[2017-09-09] MEDS ORDERED: SUGAMMADEX SODIUM 200 MG/2 ML VIAL IVP ONE (18:31)
--- NOTE | 2017-09-09 18:45 | SOAPPROG ---
SOAP Progress Note Assessment/Plan: Assessment: Plan: 09/09/17 18:34 GI note S/p ERCP. 2 stents removed (placed by outside GI dr on a prior ERCP) 2 stents placed in suspected right and left hepatic ducts. Significant CHD stricture. Minimal opacification of biliary tree. Will follow LFTs. If improving, will consider placing metal stents. No role for IR at this time. Keep NPO till tomorrow. Antibiotics x 10 days. Objective: Vital Signs Temp Pulse Resp BP Pulse Ox 36.8 C 85 16 124/76 H 94 09/09/17 15:21 09/09/17 17:17 09/09/17 17:17 09/09/17 17:17 09/09/17 17:17 Microbiology 09/08/17 14:20 Gram Stain - Final Cerebral Spinal Fluid Laboratory Results 09/08/17 06:25 09/08/17 06:25 09/08/17 09/09/17 09/10/17 05:59 05:59 05:59 Intake Total 500 Output Total 2458 800 Balance 500 -2458 -800 PT 12.0 SEC (12.0-15.0) 09/08/17 06:25 INR 0.87 (0.83-1.16) 09/08/17 06:25 ICD10 Worksheet Patient Problems: Problems Problem Status Onset Liver mass Acute
--- NOTE | 2017-09-09 18:48 | POSTANESTH ---
Post Anesthetic Evaluation Cardiovascular Status: Normal, Stable Respiratory Status: Normal, Stable Level of Consciousness/Mental Status: Can Participate in Eval Pain Control: Adequate, Prn Tx Ordered Nausea/Vomiting Control: Adequate, Prn Tx Ordered Complications Possibly Related to Anesthesia: None Noted
[2017-09-09] MEDS ORDERED: PHENYLEPHRINE HCL 100 MCG/ML SYR IVP PRN (18:49)
[2017-09-09] MEDS ORDERED: ONDANSETRON 4 MG/2 ML VIAL IVP PRN (18:49)
[2017-09-09] MEDS ORDERED: HYDROmorphONE/DILAUDID 2 MG/ML INJ IVP PRN (18:49)
[2017-09-09] MEDS ORDERED: fentaNYL 100 MCG/2 ML INJ IVP PRN (18:49)
[2017-09-09] MEDS ORDERED: ALBUTEROL 3 ML DEYVIAL IH PRN (18:49)
[2017-09-09] MEDS ORDERED: NALOXONE HCL 0.4 MG/ML INJ IVP PRN (18:49)
--- NOTE | 2017-09-10 05:51 | GPN ---
[f rep st] PROCEDURE NOTE DATE OF PROCEDURE: 09/09/2017 PROCEDURE: Endoscopic retrograde cholangiopancreatography with stent exchange, extraction of debris, placement of bilateral plastic stents. INDICATION: Ivon is a 57-year-old female with a history of metastatic breast cancer to the liver who presents for evaluation of biliary obstruction. She had a recent ERCP by an outside spot worker at [facility] with 2 stents placed in the right side of her liver (left sided stent could not be performed). She did develop post ERCP pancreatitis. Unfortunately, her LFTs did not improve. She presents for further evaluation. CONSENT: Risks, benefits, and alternatives of the procedure were discussed in great detail with the patient. Risks of infection, bleeding, perforation, sedation, and pancreatitis were discussed. All questions answered and informed consent was obtained. MEDICATIONS: General anesthesia. Please see Anesthesia record for details. Zosyn 3.375g x1. Rectal indomethacin 100 mg x1. ESTIMATED BLOOD LOSS: Insignificant. ENDOSCOPIC RETROGRADE CHOLANGIOPANCREATOGRAPHY EXAM: The Olympus duodenoscope was advanced through the mouth to the second portion of the duodenum. The ampulla was brought into view and 2 stents were emanating from the ampulla. The stents were snared and removed through the mouth. The scope was then reintroduced and passed to the second portion of the duodenum. The ampulla was brought into view and evidence of prior biliary sphincterotomy was seen. Using a [employer] sphincterotome and a 0.035 inch wire, a wire was advanced into the suspected right hepatic duct. Occlusion cholangiogram was performed. There was good flow of bile with decent visualization of the entire biliary tree. I personally interpreted the cholangiogram in real time. Several filling defects of 4-5mm were seen in the mid and distal CBD. A CHD stricture involving both the right and left hepatic duct was suspected (could not visualize the duct due to suspected malignancy). There was minimal dilation of the left tree with minimal opacification of either the right and left side. Multiple balloon sweeps were made with a 9-12mm balloon with extraction of significant large debris. The wire in the right system was kept in place and another wire was then placed into the suspected left biliary tree with some difficulty. Two 7-Khmer 9 cm stent was placed into both sides of the duct. Minimal flow of bile was seen. IMPRESSION: 1. Malignant common hepatic duct stricture with extension into both the right and left systems- status post placement of 2 stents in the right and suspect to the left system. 2. Extraction of debris. 3. Poor opacification of the liver . RECOMMENDATIONS: 1. Follow LFTs. 2. If LFTs decrease, we will recommend repeat ERCP in 4 weeks with placement of 2 self-expanding metal stents. 3. Will need IV antibiotics x10 days. 4. N.p.o. today 5. No role for interventional radiology. /[id number]/MODL MTDD
[2017-09-10] MEDS: NYSTATIN SUSP 500000 UNIT/5 ML UDCUP PO SCH ×4 (06:12→20:53)
[2017-09-10] MEDS: PIPERACILLIN/TAZO 3.375 GM/DEX 50 ML IV SCH ×4 (06:13→23:47)
[2017-09-10 06:37] LABS: PLATELET COUNT 362 10^3/uL (150-400)
[2017-09-10] MEDS: buPROPion XL 150 MG TAB PO SCH (08:09)
[2017-09-10] MEDS: DULoxetine 30 MG CAP PO SCH (08:09)
[2017-09-10] MEDS: Desvenlafaxine Succinate [Pristiq] 25 MG PO SCH (08:10)
[2017-09-10] MEDS: ENOXAPARIN 40 MG/0.4 ML SYR SC SCH (08:11)
[2017-09-10] MEDS: [UNRECOGNIZED DRUG - OTHER] PO SCH (09:06)
[2017-09-10] MEDS: oxyCODONE IR 5 MG TAB PO PRN ×2 (09:53→21:01)
[2017-09-10] MEDS: NS 1,000 ML IV SCH (10:04)
[2017-09-10] MEDS: CEPACOL LOZENGE PO PRN ×2 (10:38→21:05)
--- NOTE | 2017-09-10 11:20 | SOAPPROG ---
SOAP Progress Note Assessment/Plan: Assessment/Plan: 57 yo woman w hx of early breast ca in 2006 now with metastatic poorly differentiated adenocarcinoma (presumably breast) who p/w diffuse liver mets/hyperbilirubinemia and dysarthria 1. Hyperbilirubinemia - Appreciate GI Bilirubin better after stenting 2. Presumed metastatic breast ca - given pending path and no previous breast bx , got MMG + US discovered 2.5cm mass in left out breast at 3 o'clock; this was biopsied and path pending Path from liver bx w poorly differentiated adeno, biomarkers and Ki67 pending. Extensive bone mets noted on pet scan but shows no other obvious source of primary 3. Dysarthria w subtle MRI findings - LP done yesterday completely clear, cytology pending MRI w osseus lesion in posterior clivus, and I feel that this is causing some entrapment of CN XII which would explain her symptoms (Dr Lim agrees) This should improve somewhat w systemic treatment but if Sx worsen, could consider radiation No further neuro changes today No further imaging at this time Plan:Cisplat today, 75 mg per meter squared in 2 divided doses, I feel situation is urgent enough to warrant at this time, if bili continues to improve will open chemo options. Advance diet 09/10/17 11:15 Subjective: Feels ok, weak Objective: Vital Signs Temp Pulse Resp BP Pulse Ox 98.4 F 84 16 99/60 L 93 09/10/17 07:58 09/10/17 07:58 09/10/17 07:58 09/10/17 07:58 09/10/17 07:58 Microbiology 09/08/17 14:20 Gram Stain - Final Cerebral Spinal Fluid Laboratory Results 09/10/17 06:18 09/10/17 06:18 09/09/17 09/10/17 09/11/17 05:59 05:59 05:59 Intake Total 1972 223 Output Total 2458 1700 Balance -2458 272 223 PT 12.0 SEC (12.0-15.0) 09/08/17 06:25 INR 0.87 (0.83-1.16) 09/08/17 06:25 Physical Exam - Physical Exam General Appearance: mild distress EENT: scleral icterus (R), scleral icterus (L) Respiratory: normal breath sounds Cardiac/Chest: regular rate, rhythm ICD10 Worksheet Patient Problems: Problems Problem Status Onset Liver mass Acute
--- NOTE | 2017-09-10 12:48 | SOAPPROG ---
SOAP Progress Note Assessment/Plan: Assessment: Plan: 09/09/17 18:34 GI note S/p ERCP. 2 stents removed (placed by outside GI dr on a prior ERCP) 2 stents placed in suspected right and left hepatic ducts. Significant CHD stricture. Minimal opacification of biliary tree. Will follow LFTs. If improving, will consider placing metal stents. No role for IR at this time. Keep NPO till tomorrow. Antibiotics x 10 days. 09/10/17 12:45 A/P 1. Biliary obstruction- s/p ERCP with bilateral stents. LFTs improving. No apparent complication of procedure. Recommend to continue antibiotics for at least 7 days. Will advance diet. Monitor LFTs. Will need repeat ERCP in 6 weeks with consideration of b/l self expanding metal stents if LFTS normalize. Suspect diffuse hepatic disease due to cholangiogram. GI will sign off. Thank you for the consultation. 09/10/17 12:47 Subjective: cc: Follow up biliary obstruction No complaints. No fevers. Objective: Vital Signs Temp Pulse Resp BP Pulse Ox 37.1 C 99 14 93/67 L 90 L 09/10/17 11:30 09/10/17 11:30 09/10/17 11:30 09/10/17 11:30 09/10/17 11:30 Microbiology 09/08/17 14:20 Gram Stain - Final Cerebral Spinal Fluid Laboratory Results 09/10/17 06:18 09/10/17 06:18 09/09/17 09/10/17 09/11/17 05:59 05:59 05:59 Intake Total 1972 943 Output Total 2458 1700 400 Balance -2458 272 543 PT 12.0 SEC (12.0-15.0) 09/08/17 06:25 INR 0.87 (0.83-1.16) 09/08/17 06:25 Physical Exam - Physical Exam General Appearance: alert, no apparent distress EENT: scleral icterus (R), scleral icterus (L) Respiratory: lungs clear, normal breath sounds Cardiac/Chest: regular rate, rhythm, No diastolic murmur, No systolic murmur Abdomen: normal bowel sounds, non-tender, soft, No distended, No guarding Skin: jaundice Neuro/Psych: alert, normal mood/affect, oriented x 3 ICD10 Worksheet Patient Problems: Problems Problem Status Onset Liver mass Acute
[2017-09-10] MEDS ORDERED: PROMETHAZINE HCL 25 MG/ML INJ IVP PRN (13:07)
[2017-09-10] MEDS ORDERED: FOSAPREPITANT 150 MG in D5W 250 ML IV SCH (13:30)
[2017-09-10] MEDS ORDERED: PALONOSETRON HCL 0.25 MG/5 ML VIAL IVP ONE (13:30)
[2017-09-10] MEDS ORDERED: FOSAPREPITANT 150 MG in NS 250 ML IV SCH (13:30)
[2017-09-10] MEDS: LORazepam 2 MG/ML INJ IVP SCH (13:54)
[2017-09-10] MEDS: DEXAMETHASONE SOD PHOSPHATE 10 MG in NS (SYRINGE) 50 ML IV SCH (13:59)
--- NOTE | 2017-09-10 14:27 | SOAPPROG ---
SOAP Progress Note Assessment/Plan: Assessment: 49 A FEMALE STATUS POST ERCP AND STENTS FOR BILIARY OBSTRUCTION SECONDARY TO METASTASES AFEBRILE/COMFORTABLE/TOLERATING P.O./LESS ICTERIC WITH BILIRUBIN OF 10 ABDOMEN SOFT NONTENDER Plan: CONTINUE MEDICAL MANAGEMENT 09/10/17 14:26 Objective: Vital Signs Temp Pulse Resp BP Pulse Ox 37.1 C 99 14 93/67 L 90 L 09/10/17 11:30 09/10/17 11:30 09/10/17 11:30 09/10/17 11:30 09/10/17 11:30 Microbiology 09/08/17 14:20 Gram Stain - Final Cerebral Spinal Fluid Laboratory Results 09/10/17 06:18 09/10/17 06:18 09/09/17 09/10/17 09/11/17 05:59 05:59 05:59 Intake Total 1972 943 Output Total 2458 1700 400 Balance -2458 272 543 PT 12.0 SEC (12.0-15.0) 09/08/17 06:25 INR 0.87 (0.83-1.16) 09/08/17 06:25 ICD10 Worksheet Patient Problems: Problems Problem Status Onset Liver mass Acute
--- NOTE | 2017-09-10 14:49 | HOSPPROG ---
Hospitalist Progress Note Assessment/Plan: Subjective Follow-up on suspected metastatic breast cancer with biliary obstruction and hyperbilirubinemia. Patient is without any abdominal discomfort this morning. She asked about the possibility of eating something. We did review that her bilirubin had trended down overnight with the biliary stent placement. We discussed that we are awaiting the pathology reports from her breast biopsy as well as her spinal fluid cytology. Objective Vital signs temperature 36.9 blood pressure 99 over 60 heart rate 84 respirations 16 satting 93% on room air Physical exam General-patient is awake alert conversant no acute distress. Heart-regular rate and rhythm no murmurs Lungs-clear auscultation with normal respiratory effort Abdomen-soft nontender with light palpation normal bowel sounds -no Auguste catheter in place Extremities-no significant pitting edema Labs as detailed below Assessment and Plan 1. Hyperbilirubinemia-this is secondary to biliary obstruction. Patient is now status post stent placement on 09/09/2017. Bilirubin level has trended down over a. Continue antibiotics for 7 days as recommended by Dr. De Anda. 2. Metastatic breast cancer-I reviewed her case with Dr. Irvin with Oncology today and chemotherapy will start today. 3. Tongue deviation-this may be secondary to metastatic lesion affecting cranial nerve 12. I have put in a speech therapy consult request for further assessment. 4. Transaminitis- this is well appears to be improving after her stent placement. 5. Depression-stable continue current medical therapy. 6. DVT prophylaxis-continue current Lovenox. 7. Disposition-will see how she does over the coming days with PT and OT. Objective: Vital Signs Temp Pulse Resp BP Pulse Ox 37.1 C 99 14 93/67 L 90 L 09/10/17 11:30 09/10/17 11:30 09/10/17 11:30 09/10/17 11:30 09/10/17 11:30 Microbiology 09/08/17 14:20 Gram Stain - Final Cerebral Spinal Fluid Laboratory Results 09/10/17 06:18 09/10/17 06:18 09/09/17 09/10/17 09/11/17 05:59 05:59 05:59 Intake Total 1972 943 Output Total 2458 1700 400 Balance -2458 272 543 PT 12.0 SEC (12.0-15.0) 09/08/17 06:25 INR 0.87 (0.83-1.16) 09/08/17 06:25 ICD10 Worksheet Patient Problems: Problems Problem Status Onset Liver mass Acute
[2017-09-10] MEDS: CISPLATIN IV SCH (15:03)
[2017-09-10] MEDS: NS IV SCH ×2 (15:03→16:40)
[2017-09-10] MEDS: MAGNESIUM SULFATE IV SCH (16:40)
[2017-09-10] MEDS: POTASSIUM CL IV SCH (16:40)
[2017-09-10] MEDS: hydrOXYzine HCL 25 MG TAB PO PRN (21:00)
[2017-09-11] MEDS: hydrOXYzine HCL 25 MG TAB PO PRN ×2 (03:53→20:52)
[2017-09-11] MEDS: NS 1,000 ML IV SCH (03:54)
[2017-09-11] MEDS ORDERED: POTASSIUM CL IV ONE ×2 (04:00→15:00)
[2017-09-11] MEDS ORDERED: NS IV ONE ×2 (04:00→15:00)
[2017-09-11] MEDS ORDERED: MAGNESIUM SULFATE IV ONE ×2 (04:00→15:00)
[2017-09-11] MEDS: NYSTATIN SUSP 500000 UNIT/5 ML UDCUP PO SCH ×4 (05:35→20:52)
[2017-09-11] MEDS: PIPERACILLIN/TAZO 3.375 GM/DEX 50 ML IV SCH ×3 (05:35→17:28)
[2017-09-11] MEDS: buPROPion XL 150 MG TAB PO SCH (10:00)
[2017-09-11] MEDS: DULoxetine 30 MG CAP PO SCH (10:00)
[2017-09-11] MEDS: Desvenlafaxine Succinate [Pristiq] 25 MG PO SCH (10:01)
[2017-09-11] MEDS: ENOXAPARIN 40 MG/0.4 ML SYR SC SCH (10:01)
[2017-09-11] MEDS: [UNRECOGNIZED DRUG - OTHER] PO SCH (10:09)
[2017-09-11] MEDS ORDERED: PROMETHAZINE HCL 25 MG/ML INJ IVP PRN (11:00)
--- NOTE | 2017-09-11 11:25 | SOAPPROG ---
SOAP Progress Note Assessment/Plan: Assessment/Plan: 57 yo woman w hx of early breast ca in 2006 now with metastatic poorly differentiated adenocarcinoma (presumably breast) who p/w diffuse liver mets/hyperbilirubinemia and dysarthria 1. Hyperbilirubinemia - Appreciate GI Bilirubin much better after stenting 2. Presumed metastatic breast ca - given pending path and no previous breast bx , got MMG + US discovered 2.5cm mass in left out breast at 3 o'clock; this was biopsied and path pending Path from liver bx w poorly differentiated adeno, biomarkers and Ki67 pending. Extensive bone mets noted on pet scan but shows no other obvious source of primary 3. Dysarthria w subtle MRI findings - LP done yesterday completely clear, cytology pending MRI w osseus lesion in posterior clivus, and I feel that this is causing some entrapment of CN XII which would explain her symptoms (Dr Lim agrees) This should improve somewhat w systemic treatment but if Sx worsen, could consider radiation No further neuro changes today No further imaging at this time Plan:Day 2 Cisplat today 75 mg per meter squared in 2 divided doses, I feel situation is urgent enough to warrant at this time, if bili continues to improve will open chemo options. Advance diet, review path this week, bone strengthening agent at some point 09/10/17 11:15 09/11/17 11:22 Subjective: Feels ok, low grade nausea this am Objective: Vital Signs Temp Pulse Resp BP Pulse Ox 98.1 F 74 16 122/74 H 97 09/11/17 08:50 09/11/17 08:50 09/11/17 08:50 09/11/17 08:50 09/11/17 08:50 Microbiology 09/08/17 14:20 Gram Stain - Final Cerebral Spinal Fluid CSF Culture - Final Laboratory Results 09/10/17 06:18 09/11/17 06:00 09/10/17 09/11/17 09/12/17 05:59 05:59 05:59 Intake Total 1972 4310 Output Total 1700 4150 Balance 272 160 PT 12.0 SEC (12.0-15.0) 09/08/17 06:25 INR 0.87 (0.83-1.16) 09/08/17 06:25 Physical Exam - Physical Exam General Appearance: alert EENT: scleral icterus (R), scleral icterus (L) Respiratory: lungs clear Cardiac/Chest: regular rate, rhythm Abdomen: normal bowel sounds, non-tender ICD10 Worksheet Patient Problems: Problems Problem Status Onset Liver mass Acute
--- NOTE | 2017-09-11 12:16 | HOSPPROG ---
Hospitalist Progress Note Assessment/Plan: Subjective Follow-up on hyper bilirubinemia and suspected metastatic breast cancer Patient states she slept well overnight HD. She is experiencing some nausea related to starting chemotherapy yesterday. I reviewed with pharmacy using Phenergan. I did review her case as well with Dr. Irvin with oncology. The patient I discussed that her bilirubin has trended down even further today which she was quite happy about. Otherwise no acute events overnight Objective Vital Signs Temperature 36.6 blood pressure 105/63 heart rate 64 respirations 14 satting 96 % 2 L nasal cannula although she was on room air during my evaluation with normal saturations General-patient was resting comfortably when I 1st went in on reassessment about 1 hr later she was awake alert conversant no acute distress. Heart-regular rate and rhythm no murmurs Lungs-clear on auscultation with normal respiratory effort. No crackles at the lung bases appreciated. Abdomen-soft nontender normal bowel sounds. no Auguste catheter in place Extremities-no significant pitting edema Labs as detailed below Assessment and plan 1. Hyperbilirubinemia-secondary to biliary obstruction from metastatic disease. Patient is now status post stent placement on 09/09/2017. Bilirubin has gradually trended down since stent placement. Continue antibiotics for 7 days as recommended by Dr. De Anda. She will need outpatient follow-up with . Review was well as some self expanding stents were considered. 2. Metastatic cancer-patient has poorly differentiated adenocarcinoma that is felt to be likely metastatic breast cancer if she did have a breast mass noted. This was biopsied and pathology results are currently pending. The patient's appears to be tolerating cisplatin relatively well in the plan is to continue again today. Appreciate Dr. Jenkins assistance on the case. 3. Tongue deviation-suspecting that this may be secondary to metastatic lesion affecting the cranial nerve 12. Speech therapy has been consulted. Monitor closely for improvement with ongoing chemotherapy. 4. Depression-continue current medical therapy. 5. DVT prophylaxis-patient is currently on Lovenox. 6. Disposition-PT and OT consults. Likely will be able to return home when stable for discharge. Objective: Vital Signs Temp Pulse Resp BP Pulse Ox 36.7 C 74 16 122/74 H 97 09/11/17 08:50 09/11/17 08:50 09/11/17 08:50 09/11/17 08:50 09/11/17 08:50 Microbiology 09/08/17 14:20 Gram Stain - Final Cerebral Spinal Fluid CSF Culture - Final Laboratory Results 09/10/17 06:18 09/11/17 06:00 09/10/17 09/11/17 09/12/17 05:59 05:59 05:59 Intake Total 1972 4310 Output Total 1700 4150 Balance 272 160 PT 12.0 SEC (12.0-15.0) 09/08/17 06:25 INR 0.87 (0.83-1.16) 09/08/17 06:25 ICD10 Worksheet Patient Problems: Problems Problem Status Onset Liver mass Acute
[2017-09-11] MEDS: LORazepam 2 MG/ML INJ IVP SCH (13:35)
[2017-09-11] MEDS: DEXAMETHASONE SOD PHOSPHATE 10 MG in NS (SYRINGE) 50 ML IV SCH (13:40)
[2017-09-11] MEDS: CISPLATIN IV SCH (14:23)
[2017-09-11] MEDS: NS IV SCH (14:23)
--- NOTE | 2017-09-11 15:41 | ASMTCMCOM ---
CM Note CM Note Notes: S/p ERCP w/stent placement POD #2. ST recommending no follow up at this time. PT currently recommending home no needs. Pt receiving chemo infusion today; RN note reports new onset unsteady gait. PT to reevaluate pt tomorrow. CM will continue to follow. Date Signed: 09/11/2017 03:40 PM Electronically Signed By:Marielle Jones RN
[2017-09-11] MEDS: oxyCODONE IR 5 MG TAB PO PRN (20:52)
[2017-09-12] MEDS: PIPERACILLIN/TAZO 3.375 GM/DEX 50 ML IV SCH ×5 (00:21→23:56)
[2017-09-12] MEDS: oxyCODONE IR 5 MG TAB PO PRN (02:35)
[2017-09-12] MEDS: hydrOXYzine HCL 25 MG TAB PO PRN ×2 (02:36→20:14)
[2017-09-12 04:34] LABS: PLATELET COUNT 393 10^3/uL (150-400)
[2017-09-12] MEDS: NYSTATIN SUSP 500000 UNIT/5 ML UDCUP PO SCH ×4 (05:28→20:14)
[2017-09-12] MEDS: Desvenlafaxine Succinate [Pristiq] 25 MG PO SCH (10:01)
[2017-09-12] MEDS: ENOXAPARIN 40 MG/0.4 ML SYR SC SCH (10:02)
[2017-09-12] MEDS: DULoxetine 30 MG CAP PO SCH (10:02)
[2017-09-12] MEDS: buPROPion XL 150 MG TAB PO SCH (10:02)
[2017-09-12] MEDS: [UNRECOGNIZED DRUG - OTHER] PO SCH (11:43)
--- NOTE | 2017-09-12 12:58 | SOAPPROG ---
SOAP Progress Note Assessment/Plan: Assessment: 1.) Obstructive jaundice- await biopsies from [facility] and [facility] breast bx. 2) Hx. of breast cancer - about 10 years prior 3.) S/P Cisplatin chemotherapy Cycle 1 Day 3 today. Discussed admin. with patient and family @ bedside extensively. 4.) May need IV access with mediport- depending on Dx and Tx plans. D/W patient today. 5.) Discharge planning - may be able to go home on 09/14/17 if safe/feasible as D/W patient and family. Follow labs and sx. and po intake Plan: see above. pt would be continuing with Dr. Garcia at the [facility] office. 09/12/17 12:58 Subjective: Tolerated Cisplatin on 09/10 and 09/11 without undue toxicity. Able to keep fluids and some solid food down. Also walking the halls this AM. Finds no new and no worsening sx. Objective: Afebrile, VSS as noted here. HEENT- + icterus, mild, no facial assymetry, no oral lesions Neck - supple Chest - clear, CVS- RSR, no extra HS ABD- soft, NT no mass or HSM. BS+, no ascites. EXT- notable for trace edema. Labs as noted here: BUN/Cr 9/0.6 Alk phos 1225 to 1180 T. Bili 6.6 to 5.8 Hgb 9.0 Vital Signs Temp Pulse Resp BP Pulse Ox 37.2 C 79 16 104/62 92 09/12/17 12:00 09/12/17 12:00 09/12/17 12:00 09/12/17 12:00 09/12/17 12:00 Microbiology 09/08/17 14:20 Gram Stain - Final Cerebral Spinal Fluid CSF Culture - Final Laboratory Results 09/12/17 04:15 09/12/17 04:15 09/11/17 09/12/17 09/13/17 05:59 05:59 05:59 Intake Total 4310 2456 Output Total 4150 8310 Balance 160 -2194 PT 12.0 SEC (12.0-15.0) 09/08/17 06:25 INR 0.87 (0.83-1.16) 09/08/17 06:25 ICD10 Worksheet Patient Problems: Problems Problem Status Onset Liver mass Acute
[2017-09-12] MEDS: 1/2 NS 1,000 ML IV SCH (14:57)
--- NOTE | 2017-09-12 17:06 | HOSPPROG ---
Hospitalist Progress Note Assessment/Plan: Subjective Follow-up on elevated bilirubin level and suspected metastatic breast cancer Patient's oral intake his been somewhat limited since restarting up on chemotherapy. I reviewed her case with Dr. Rosales with Oncology today and he stated that he will start IV fluids for now. Family was present at the bedside today and we reviewed her blood work which again shows a continually improving bilirubin level. No complaints of any abdominal pains or subjective fevers or chills. Objective Vital signs Temperature 37.2 blood pressure 104/62 heart rate 79 respirations 16 satting 92 % on room air Physical exam General-patient is awake alert conversant no acute distress visiting with family Skin-much improved jaundice compared to days prior. She does still have scleral icterus on exam Heart-regular rate and rhythm no murmurs Lungs-Clear to auscultation with normal respiratory effort. No crackles at lung bases noted. Abdomen-soft nontender nondistended -no Auguste catheter in place Extremities-no significant pitting edema Labs as detailed below Assessment plan 1. Hyperbilirubinemia-this is secondary to biliary obstruction from metastatic disease. Patient is now status post stent placement on 09/09/2017. Bilirubin has gradually trended down since stent placement and her jaundice appears to be improving as well. Antibiotics were recommended to be continued for 7 days after the stent placement. She will need outpatient follow-up with Dr. De Anda. 2. Metastatic cancer-patient has poorly differentiated adenocarcinoma is felt likely to be metastatic breast cancer as she did also have a breast mass noted. This was biopsied and pathology results are currently pending. She appears to be tolerating cisplatin relatively well. 3. Tongue deviation-suspecting that this may be secondary to metastatic lesion affecting the cranial nerve 12. Monitor clinically with ongoing chemotherapy. 4. Depression-appears stable. continue current medical therapy . 5. DVT prophylaxis-continue Lovenox. 6. Disposition-PT and OT consults. Based on her performance over the past few days evidence states she would be able to return home when ready for discharge. Objective: Vital Signs Temp Pulse Resp BP Pulse Ox 37.1 C 87 18 107/72 94 09/12/17 15:54 09/12/17 15:54 09/12/17 15:54 09/12/17 15:54 09/12/17 15:54 Laboratory Results 09/12/17 04:15 09/12/17 04:15 09/11/17 09/12/17 09/13/17 05:59 05:59 05:59 Intake Total 4310 2456 Output Total 4152 6280 Balance 160 -2194 PT 12.0 SEC (12.0-15.0) 09/08/17 06:25 INR 0.87 (0.83-1.16) 09/08/17 06:25 ICD10 Worksheet Patient Problems: Problems Problem Status Onset Liver mass Acute
[2017-09-13] MEDS: oxyCODONE IR 5 MG TAB PO PRN (00:08)
[2017-09-13] MEDS: 1/2 NS 1,000 ML IV SCH ×2 (04:42→20:29)
[2017-09-13 05:01] LABS: PLATELET COUNT 383 10^3/uL (150-400)
[2017-09-13] MEDS: PIPERACILLIN/TAZO 3.375 GM/DEX 50 ML IV SCH ×2 (05:33→12:54)
[2017-09-13] MEDS: NYSTATIN SUSP 500000 UNIT/5 ML UDCUP PO SCH ×4 (05:34→20:29)
[2017-09-13] MEDS: ENOXAPARIN 40 MG/0.4 ML SYR SC SCH (09:06)
[2017-09-13] MEDS: buPROPion XL 150 MG TAB PO SCH (09:06)
[2017-09-13] MEDS: DULoxetine 30 MG CAP PO SCH (09:06)
[2017-09-13] MEDS: Desvenlafaxine Succinate [Pristiq] 25 MG PO SCH (09:07)
[2017-09-13] MEDS: [UNRECOGNIZED DRUG - OTHER] PO SCH (10:18)
--- NOTE | 2017-09-13 11:51 | ASMTCMCOM ---
CM Note CM Note Notes: Pt cleared by PT to dc home, no PT follow up needed. Pt has been seen by oncology nurse navigoator. Reviewed chart and discussed w/pt's RN. Anticipate home w/ when medically ready. Date Signed: 09/13/2017 11:50 AM Electronically Signed By:Charis Smith RN
--- NOTE | 2017-09-13 12:11 | SOAPPROG ---
SOAP Progress Note Assessment/Plan: Assessment: 1.) Obstructive jaundice- biopsies from [facility] and [facility] breast bx both are malignant as d/w patient and her and son today at the bedside. Copies of available breast cancer pathology reports given to the patient at her request. 2) Hx. of breast cancer - about 10 years prior 3.) S/P Cisplatin chemotherapy Cycle 1 Day 4 today. Discussed admin. with patient and family @ bedside extensively. 4.) May need IV access with mediport- depending on Dx and Tx plans. D/W patient today. Will consult Dr. Annemarie Pugh for Mediport placement . Pt. agrees. 5.) Discharge planning - may be able to go home on 09/14/17 if safe/feasible as D/W patient and family. Follow labs and sx. and po intake Plan: see above. pt would be continuing with Dr. Garcia at the [facility] office. I have notified Dr. Garcia of the breast and liver bx. results and I have faxed copies of both path reports to the [facility] office for Dr. Garcia this afternoon. Further plans for systemic Tx per Dr. Garcia and family. 09/13/17 12:11 Subjective: somewhat nauseated. Taking in a few small sips of fluids thus far over past 12 hours. Adequate pain control. Objective: and son at bedside. Pt in NAD. Sitting up in bed and appears comfortable VSS afebrile as noted here. HEENT- anicteric, no oral lesions Neck - supple Chest- clear CVS- RSR, no extra HS ABD- soft, NT, BS+, no rebound. nondistended. EXT- no edema, mildly jaundiced. Path Report from breast biopsy: # [id number], from biopsy 09/09/17: Invasive ductal carcinoma with lobular features. ER +, 50 %, OR + 5 %, low prolif. index. HER-2/natividad pending. Path Report from liver biopsy at [facility]: # [id number]: Metastatic poorly diff. Adenocarcinoma, ER + 95 %, OR -, 0 % Comment: "metastatic breast cancer is favored." Vital Signs Temp Pulse Resp BP Pulse Ox 37.2 C 85 15 129/80 H 91 L 09/13/17 08:00 09/13/17 08:00 09/13/17 08:00 09/13/17 08:00 09/13/17 08:00 Laboratory Results 09/13/17 04:40 09/13/17 04:40 09/12/17 09/13/17 09/14/17 05:59 05:59 05:59 Intake Total 2456 1458 Output Total 4650 2500 1000 Balance -2194 -1042 -1000 PT 12.0 SEC (12.0-15.0) 09/08/17 06:25 INR 0.87 (0.83-1.16) 09/08/17 06:25 ICD10 Worksheet Patient Problems: Problems Problem Status Onset Liver mass Acute
--- NOTE | 2017-09-13 13:51 | HOSPPROG ---
Hospitalist Progress Note Assessment/Plan: Hyperbilirubinemia- secondary to common hepatic duct stricture from malignancy, s/p stent placement 09/09/2017. Bili trending down (alk phos remains elevated 2/ 2 bone mets). A bit nauseous today. -cont zosyn, day 4/7 post-stent -prn zofran, advance diet as tolerated -outpt f/u with Dr. De Anda Metastatic breast cancer with liver and bone mets - path reviewed, invasive ductal carcinoma -on cisplatin, cycle 1 day 4 today -followed by Dr. Garcia, appreciate inpt assistance from Dr. David -planning for surgical consult for mediport placement Tongue deviation - secondary to metastatic lesion affecting the cranial nerve 12. Monitor clinically with ongoing chemotherapy. Depression-appears stable. continue current medical therapy . DVT prophylaxis- Lovenox, hold prior to PORT placement if that occurs inpt Disposition- Cont inpt. PT/OT evals, suspect dispo home when ready, possibly tomorrow Subjective: Pt doing ok, c/o feeling a little "queasy". No N/V. No abdominal pain. No BM for several days. No fevers/chills. Ambulating a bit. Objective: Vital Signs Temp Pulse Resp BP Pulse Ox 37.3 C 90 16 116/72 91 L 09/13/17 12:00 09/13/17 12:00 09/13/17 12:00 09/13/17 12:00 09/13/17 12:00 Laboratory Results 09/13/17 04:40 09/13/17 04:40 09/12/17 09/13/17 09/14/17 05:59 05:59 05:59 Intake Total 2456 1458 Output Total 4650 2500 1000 Balance -2194 -1042 -1000 PT 12.0 SEC (12.0-15.0) 09/08/17 06:25 INR 0.87 (0.83-1.16) 09/08/17 06:25 - Physical Exam Constitutional: no apparent distress Eyes: PERRL Ears, Nose, Mouth, Throat: moist mucous membranes Cardiovascular: regular rate and rhythym Respiratory: no respiratory distress Gastrointestinal: normoactive bowel sounds, soft, non-tender abdomen Skin: warm Musculoskeletal: full muscle strength Neurologic: AAOx3 Psychiatric: interacting appropriately ICD10 Worksheet Patient Problems: Problems Problem Status Onset Liver mass Acute
[2017-09-13] MEDS ORDERED: BISACODYL 10 MG SUPP PR PRN (13:56)
[2017-09-13] MEDS ORDERED: LACTULOSE 20 GM/30 ML UDCUP PO PRN (13:56)
[2017-09-13] MEDS ORDERED: MAGNESIUM HYDROXIDE 30 ML UDCUP PO PRN (13:56)
[2017-09-13] MEDS ORDERED: POLYETHYLENE GLYCOL 3350 17 GM PKT PO PRN (13:56)
[2017-09-13] MEDS ORDERED: ONDANSETRON DISINTEGRATING 4 MG TAB PO PRN (14:22)
[2017-09-13] MEDS: PIPERACILLIN SODIUM/TAZOBACTAM 3.375 GM in D5W 50 ML IV SCH (17:36)
[2017-09-13] MEDS: SENNOSIDES/DOCUSATE SODIUM TAB PO SCH (20:29)
[2017-09-13] MEDS: hydrOXYzine HCL 25 MG TAB PO PRN (20:32)
[2017-09-14] MEDS: PIPERACILLIN SODIUM/TAZOBACTAM 3.375 GM in D5W 50 ML IV SCH ×4 (00:11→17:59)
[2017-09-14] MEDS: hydrOXYzine HCL 25 MG TAB PO PRN (03:53)
[2017-09-14] MEDS ORDERED: CALCIUM CARBONATE 500 MG CHEWABLE TAB PO PRN (04:02)
[2017-09-14] MEDS: NYSTATIN SUSP 500000 UNIT/5 ML UDCUP PO SCH ×4 (05:43→23:12)
[2017-09-14] MEDS: SENNOSIDES/DOCUSATE SODIUM TAB PO SCH ×2 (08:57→23:12)
[2017-09-14] MEDS: DULoxetine 30 MG CAP PO SCH (08:57)
[2017-09-14] MEDS: buPROPion XL 150 MG TAB PO SCH (08:57)
[2017-09-14] MEDS: Desvenlafaxine Succinate [Pristiq] 25 MG PO SCH (08:58)
[2017-09-14] MEDS: ENOXAPARIN 40 MG/0.4 ML SYR SC SCH (09:04)
[2017-09-14] MEDS: [UNRECOGNIZED DRUG - OTHER] PO SCH (10:23)
--- NOTE | 2017-09-14 12:52 | SOAPPROG ---
SOAP Progress Note Assessment/Plan: Assessment: 1.) Obstructive jaundice- biopsies from [facility] and [facility] breast bx both are malignant as d/w patient and her and son today at the bedside. Copies of available breast cancer pathology reports given to the patient at her request. 2) Hx. of breast cancer - about 10 years prior 3.) S/P Cisplatin chemotherapy Cycle 1 Day 5 today. Discussed admin. with patient and family @ bedside extensively. 4.) May need IV access with mediport- depending on Dx and Tx plans. D/W patient today. Will consult Dr. Annemarie Pugh for Mediport placement . Pt. agrees. 5.) Discharge planning - may be able to go home on 09/15/17 if safe/feasible as D/W patient and family. Follow labs and sx. and po intake Plan: see above. pt would be continuing with Dr. Garcia at the [facility] office. I have notified Dr. Garcia of the breast and liver bx. results and I have faxed copies of both path reports to the [facility] office for Dr. Garcia this afternoon. Further plans for systemic Tx per Dr. Garcia and family. Options for TX will expand with resolution of liver dysfunction. 09/14/17 12:52 Subjective: Feels a bit better and taking in a limited diet. Made circuits around the [place] last evening. No N/V or dry heaves. No new sx. Objective: VSS, afebrile as noted here. HEENT- mildly icteric, no oral thrush Neck- supple Chest- clear CVS- RSR, no extra HS ABD- soft, NT, no change in mild hepatomegaly EXT- no edema. Labs as noted here: Hgb 9.8, T. Bili 5.2, alk phos shows slight improvement. Vital Signs Temp Pulse Resp BP Pulse Ox 37.1 C 91 16 125/83 H 95 09/14/17 11:56 09/14/17 11:56 09/14/17 11:56 09/14/17 11:56 09/14/17 11:56 Laboratory Results 09/13/17 04:40 09/14/17 04:30 09/13/17 09/14/17 09/15/17 05:59 05:59 05:59 Intake Total 1458 1725 Output Total 2500 2750 1400 Balance -1042 -1025 -1400 PT 12.0 SEC (12.0-15.0) 09/08/17 06:25 INR 0.87 (0.83-1.16) 09/08/17 06:25 ICD10 Worksheet Patient Problems: Problems Problem Status Onset Liver mass Acute
--- NOTE | 2017-09-14 14:08 | HOSPPROG ---
Hospitalist Progress Note Assessment/Plan: Hyperbilirubinemia- secondary to common hepatic duct stricture from malignancy, s/p stent placement 09/09/2017. Bili trending down (alk phos remains elevated 2/ 2 bone mets). -cont zosyn, day 5/7 post-stent -prn zofran, advance diet as tolerated -outpt f/u with Dr. De Anda Metastatic breast cancer with liver and bone mets - path reviewed, invasive ductal carcinoma -on cisplatin, cycle 1 day 4 today -followed by Dr. Garcia, appreciate inpt assistance from Dr. David -planning for mediport placement tomorrow afternoon per gen surg, hold lovenox Tongue deviation - secondary to metastatic lesion affecting the cranial nerve 12. Monitor clinically with ongoing chemotherapy. Depression-appears stable. continue current medical therapy . DVT prophylaxis- Lovenox on hold for port placement tomorrow Disposition- Cont inpt. Cont PT/OT, possibly home tomorrow after port placement Objective: Vital Signs Temp Pulse Resp BP Pulse Ox 37.1 C 91 16 125/83 H 95 09/14/17 11:56 09/14/17 11:56 09/14/17 11:56 09/14/17 11:56 09/14/17 11:56 Laboratory Results 09/13/17 04:40 09/14/17 04:30 09/13/17 09/14/17 09/15/17 05:59 05:59 05:59 Intake Total 1458 1725 Output Total 8271 2750 1400 Balance -1042 -1025 -1400 PT 12.0 SEC (12.0-15.0) 09/08/17 06:25 INR 0.87 (0.83-1.16) 09/08/17 06:25 ICD10 Worksheet Patient Problems: Problems Problem Status Onset Liver mass Acute
--- NOTE | 2017-09-14 15:05 | SOAPPROG ---
SOAP Progress Note Assessment/Plan: Assessment/Plan: 57yo F with metastatic breast ca (liver and bone mets) admitted with hyperbilirubinemia secondary to common hepatic duct structure from malignancy. To OR tomorrow with Dr. Pugh for power port placement Discussed risks/benefits Consent signed in chart NPO 8 hours prior to surgery - scheduled at 1315 on Questions answered to patient's satisfaction 09/14/17 15:05 Objective: Vital Signs Temp Pulse Resp BP Pulse Ox 37.1 C 91 16 125/83 H 95 09/14/17 11:56 09/14/17 11:56 09/14/17 11:56 09/14/17 11:56 09/14/17 11:56 Laboratory Results 09/13/17 04:40 09/14/17 04:30 09/13/17 09/14/17 09/15/17 05:59 05:59 05:59 Intake Total 1458 1725 Output Total 2500 2750 1400 Balance -1042 -1025 -1400 PT 12.0 SEC (12.0-15.0) 09/08/17 06:25 INR 0.87 (0.83-1.16) 09/08/17 06:25 ICD10 Worksheet Patient Problems: Problems Problem Status Onset Liver mass Acute
[2017-09-15] MEDS: hydrOXYzine HCL 25 MG TAB PO PRN ×2 (00:48→22:14)
[2017-09-15] MEDS: PIPERACILLIN SODIUM/TAZOBACTAM 3.375 GM in D5W 50 ML IV SCH ×5 (00:48→23:47)
[2017-09-15] MEDS: oxyCODONE IR 5 MG TAB PO PRN (03:57)
[2017-09-15] MEDS: NYSTATIN SUSP 500000 UNIT/5 ML UDCUP PO SCH ×4 (06:34→22:13)
[2017-09-15] MEDS: buPROPion XL 150 MG TAB PO SCH ×2 (09:20→19:36)
[2017-09-15] MEDS: [UNRECOGNIZED DRUG - OTHER] PO SCH (09:20)
[2017-09-15] MEDS: Desvenlafaxine Succinate [Pristiq] 25 MG PO SCH ×2 (09:20→19:35)
[2017-09-15] MEDS: SENNOSIDES/DOCUSATE SODIUM TAB PO SCH ×2 (09:20→22:24)
[2017-09-15] MEDS: DULoxetine 30 MG CAP PO SCH ×2 (09:20→19:37)
[2017-09-15] MEDS ORDERED: BUPIVACAINE 0.5% 30 ML SDV ONE (12:36)
[2017-09-15] MEDS ORDERED: LR 1,000 ML IV ONE (13:05)
--- NOTE | 2017-09-15 13:06 | SOAPPROG ---
BETHEL Progress Note Assessment/Plan: Assessment: will need port for chemotherapy. risks and benefits reviewed. Will proceed today Plan: 09/15/17 13:06 Objective: Vital Signs Temp Pulse Resp BP Pulse Ox 37.4 C 94 16 125/80 H 93 09/15/17 12:58 09/15/17 12:58 09/15/17 12:58 09/15/17 12:58 09/15/17 12:58 Laboratory Results 09/13/17 04:40 09/14/17 04:30 09/14/17 09/15/17 09/16/17 05:59 05:59 05:59 Intake Total 1725 950 Output Total 2750 2850 Balance -1025 -1900 PT 12.0 SEC (12.0-15.0) 09/08/17 06:25 INR 0.87 (0.83-1.16) 09/08/17 06:25 ICD10 Worksheet Patient Problems: Problems Problem Status Onset Liver mass Acute
[2017-09-15] MEDS ORDERED: MIDAZOLAM 2 MG/2 ML VIAL IVP ONE (13:26)
--- NOTE | 2017-09-15 13:28 | PDANEPAE ---
ANE History of Present Illness port ANE Past Medical History - Cardiovascular History Hx Hypertension: No Hx Arrhythmias: No Hx Chest Pain: No Hx Coronary Artery / Peripheral Vascular Disease: No Hx CHF / Valvular Disease: No Hx Palpitations: No - Pulmonary History Hx COPD: No Hx Asthma/Reactive Airway Disease: No Hx Recent Upper Respiratory Infection: No Hx Oxygen in Use at Home: No Hx Sleep Apnea: No Sleep Apnea Screening Result - Last Documented: Negative - Neurologic History Hx Cerebrovascular Accident: No Hx Seizures: No Hx Dementia: No - Endocrine History Hx Diabetes: No Hypothyroid: No Hyperthyroid: No - Renal History Hx Renal Disorders: No - Liver History Hx Hepatic Disorders: Yes - Neurological & Psychiatric Hx Hx Neurological and Psychiatric Disorders: No - Cancer History Hx Cancer: Yes - GI History GERD: no - Chronic Pain History Chronic Pain: No ANE Review of Systems Review of Systems: - Exercise capacity Exercise capacity: >=4 METS ANE Patient History - Allergies Allergies/Adverse Reactions: levofloxacin Allergy (Verified 09/07/17 17:38) Anaphylaxis Sulfa (Sulfonamide Antibiotics) Allergy (Verified 09/07/17 17:38) Hives - Home Medications Home Medications: DULoxetine [Cymbalta 30 MG (*)] 30 mg PO DAILY 09/07/17 [Last Taken Unknown] Desvenlafaxine Succinate [Pristiq ER] 25 mg PO DAILY 09/07/17 [Last Taken Unknown] T3/T4 Compounded 1 ea PO DAILY 09/07/17 [Last Taken Unknown] buPROPion XL [Wellbutrin Xl] 150 mg PO DAILY 09/07/17 [Last Taken Unknown] hydrOXYzine HCL [hydrOXYzine HCL (RX)] 25 mg PO Q4 PRN 09/07/17 [Last Taken Unknown] oxyCODONE IR [Oxycodone Ir (*)] 5 - 10 mg PO Q4 PRN 09/07/17 [Last Taken Unknown ] - NPO status NPO Status: no food or drink >8 hours NPO Since - Liquids (Date): 09/15/17 NPO Since - Liquids (Time): 04:30 NPO Since - Solids (Date): 09/15/17 NPO Since - Solids (Time): 04:30 - Smoking Hx Smoking Status: Former smoker ANE Labs/Vital Signs - Labs Result Diagrams: 09/13/17 04:40 09/14/17 04:30 - Vital Signs Blood Pressure: 125/80 Heart Rate: 94 Respiratory Rate: 16 O2 Sat (%): 93 Height: 170.18 cm Weight: 64.9 kg ANE Physical Exam - Airway Mallampati Score: Class 2 Mouth exam: normal dental/mouth exam - Pulmonary Pulmonary: no respiratory distress - Cardiovascular Cardiovascular: regular rate and rhythym - ASA Status ASA Status: II ANE Anesthesia Plan Anesthesia Plan: GA w LMA
[2017-09-15] MEDS ORDERED: ONDANSETRON 4 MG/2 ML VIAL ONE (13:30)
[2017-09-15] MEDS ORDERED: fentaNYL 100 MCG/2 ML INJ ONE (13:30)
[2017-09-15] MEDS ORDERED: DEXAMETHASONE 4 MG/ML VIAL ONE (13:30)
[2017-09-15] MEDS ORDERED: PROPOFOL 200 MG/20 ML VIAL ONE (13:30)
[2017-09-15] MEDS ORDERED: LIDOCAINE 2% 5 ML SDV ONE (13:30)
[2017-09-15] MEDS ORDERED: MIDAZOLAM 2 MG/2 ML VIAL ONE (13:39)
--- NOTE | 2017-09-15 14:28 | POSTOPPROG ---
Post Op Note Date of Operation: 09/15/17 Surgeon: Annemarie Pugh Anesthesiologist: rebekah Anesthesia: GET(General Endotracheal) Pre-op Diagnosis: L met breast cancer Post-op Diagnosis: same Indication: 57 yo with breast cancer Procedure: L US IJ port Findings: tip SVC Inf/Abcess present in the surg proc area at time of surgery?: No EBL: Minimal
[2017-09-15] MEDS ORDERED: fentaNYL 100 MCG/2 ML INJ IVP PRN (14:38)
[2017-09-15] MEDS ORDERED: ALBUTEROL 3 ML DEYVIAL IH PRN (14:38)
[2017-09-15] MEDS ORDERED: NALOXONE HCL 0.4 MG/ML INJ IVP PRN (14:38)
--- NOTE | 2017-09-15 16:19 | ASMTCMCOM ---
CM Note CM Note Notes: Chart reviewed. Patient underwent surgical port implant today. No current needs identified. CM available should other needs arise. Plan: Likely home with family support. Date Signed: 09/15/2017 04:18 PM Electronically Signed By:Fatemeh Blevins RN
--- NOTE | 2017-09-15 16:51 | HOSPPROG ---
Hospitalist Progress Note Assessment/Plan: Hyperbilirubinemia- secondary to common hepatic duct stricture from malignancy, s/p stent placement 09/09/2017. Bili trending down (alk phos remains elevated 2/ 2 bone mets). -cont zosyn, day 6/7 post-stent -prn zofran, advance diet as tolerated -outpt f/u with Dr. De Anda Metastatic breast cancer with liver and bone mets - path reviewed, invasive ductal carcinoma -on cisplatin per onc -followed by Dr. Garcia, appreciate inpt assistance from Dr. 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 Monitor clinically with ongoing chemotherapy. Depression-appears stable. continue current medical therapy . DVT prophylaxis- Lovenox held for port placement Disposition- Cont inpt. Cont PT/OT, likely d/c in am Subjective: Pt doing well, had port placed today. No fevers/chills. Tolerating po. No abdominal pain, N/V. Objective: Vital Signs Temp Pulse Resp BP Pulse Ox 36.8 C 100 16 110/73 91 L 09/15/17 16:00 09/15/17 16:00 09/15/17 16:00 09/15/17 16:00 09/15/17 16:00 Laboratory Results 09/13/17 04:40 09/14/17 04:30 09/14/17 09/15/17 09/16/17 05:59 05:59 05:59 Intake Total 1725 950 550 Output Total 2750 2850 Balance -1025 -1900 550 PT 12.0 SEC (12.0-15.0) 09/08/17 06:25 INR 0.87 (0.83-1.16) 09/08/17 06:25 - Physical Exam Constitutional: no apparent distress Eyes: PERRL Ears, Nose, Mouth, Throat: moist mucous membranes Cardiovascular: regular rate and rhythym Respiratory: no respiratory distress, clear to auscultation Gastrointestinal: normoactive bowel sounds, soft, non-tender abdomen Skin: warm Musculoskeletal: full muscle strength Neurologic: AAOx3 Psychiatric: interacting appropriately ICD10 Worksheet Patient Problems: Problems Problem Status Onset Liver mass Acute
[2017-09-16] MEDS: PIPERACILLIN SODIUM/TAZOBACTAM 3.375 GM in D5W 50 ML IV SCH (05:54)
[2017-09-16] MEDS: NYSTATIN SUSP 500000 UNIT/5 ML UDCUP PO SCH (05:54)
[2017-09-16] MEDS: oxyCODONE IR 5 MG TAB PO PRN (05:59)
[2017-09-16 06:04] LABS: PLATELET COUNT 396 10^3/uL (150-400)
--- NOTE | 2017-09-16 07:07 | GOP ---
[f rep st] OPERATIVE REPORT DATE OF OPERATION: 09/15/2017 SURGEON: Annemarie Pugh MD ANESTHESIA: General. ANESTHESIOLOGIST: Juan David Bernard MD PREOPERATIVE DIAGNOSIS: Metastatic breast cancer. POSTOPERATIVE DIAGNOSIS: Metastatic breast cancer. PROCEDURE PERFORMED: Left ultrasound-guided internal jugular PowerPort placement. FINDINGS: Tip in the SVC. SPECIMENS: None. ESTIMATED BLOOD LOSS: Minimum. INDICATIONS: Ivon Jones is a 57-year-old woman with metastatic breast cancer. She will need a p ort for chemotherapy. DESCRIPTION OF PROCEDURE: Patient was brought into the operating room, placed supine on the table, a nd general anesthesia was administered. Her bilateral neck and chest were prepped and draped in the usual sterile fashion. I used ultrasound to identify her left internal jugular vein, which was compr essible. I accessed it on the first attempt with a large-bore needle with dark return of blood flow. I threaded the guidewire and removed the needle. Placement was confirmed in the IVC with fluorosco py. I created a pocket to accommodate the port in the left chest. I tunneled the port up to the ins ertion site under fluoroscopy. I measured the catheter and cut it to size. Using the Seldinger tech nique, I placed a dilator and sheath over the wire. I removed the wire and the dilator. I threaded the catheter through the sheath and peeled away the sheath. Placement was confirmed with fluoroscopy . I closed the pocket with 3-0 Vicryl followed by 4-0 Monocryl. Dermabond applied. She was awakened in the operating room, extubated, and transferred to PACU in stable condition. The postoperative est x-ray shows no evidence of pneumothorax and the port at the SVC-RA junction. /[id number]/MODL
[2017-09-16 08:16] VITALS: BP 122/76
[2017-09-16] MEDS: DULoxetine 30 MG CAP PO SCH (08:39)
[2017-09-16] MEDS: Desvenlafaxine Succinate [Pristiq] 25 MG PO SCH (08:39)
[2017-09-16] MEDS: buPROPion XL 150 MG TAB PO SCH (08:39)
[2017-09-16] MEDS: SENNOSIDES/DOCUSATE SODIUM TAB PO SCH (08:39)
[2017-09-16] MEDS: [UNRECOGNIZED DRUG - OTHER] PO SCH (08:40)
--- NOTE | 2017-09-16 09:28 | ASMTLACE ---
LACE Length of stay for Answers: 7-13 days current admission Acuity / Level of Answers: Yes Care: Did the patient have an inpatient admission? Comorbidities - select Answers: Any tumor (including all that apply lymphoma or leukemia) Score: 10 Date Signed: 09/16/2017 09:28 AM Electronically Signed By:Fatemeh Blevins RN
--- NOTE | 2017-09-16 09:30 | ASMTCMCOM ---
CM Note CM Note Notes: Chart reviewed. Patient has been medically cleared for discharge to home. No needs identified. CM available should needs arise, Plan: Home with family support. Date Signed: 09/16/2017 09:29 AM Electronically Signed By:Fatemeh Blevins RN
--- NOTE | 2017-09-16 10:23 | GDS ---
[f rep st] DISCHARGE SUMMARY DISCHARGE DIAGNOSES: 1. Metastatic breast cancer. 2. Hyperbilirubinemia secondary to common hepatic duct stricture secondary to malignancy. 3. Status post stent placement in the right and left hepatic ducts. 4. 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 5. Depression, stable. 6. Thrush. CONSULTATIONS: 1. Dr. Lynn Sheets, Oncology. 2. Dr. Annemarie Pugh, General Surgery. 3. Dr. Magdaleno Greer, Gastroenterology. 4. Dr. Catracho De Anda, Gastroenterology. IMAGING STUDIES/PROCEDURES: 1. Brain MRI, September 07, 2017, showed suspected osseous metastatic disease in the osseous calvarium, th e upper cervical spine, and possibly the posterior clivus. 2. HIDA scan, September 08, 2017, showed patent stents with persistent cardiac uptake on delayed series, p ossibly related to poor hepatic function and sequela of poor biliary drainage. 3. Lumbar puncture, September 08, 2017, showed clear cerebrospinal fluid with a negative culture. Cytolog y is negative for malignant cells. 4. PICC line insertion, September 08, 2017. 5. Breast ultrasound with biopsy, September 09, 2017. Pathology confirming invasive ductal carcinoma with lobular features. 6. ERCP with stent exchange and placement of bilateral plastic stents in the common hepatic duct, Ma 2017, by Dr. Catracho De Anda. 7. Left port placement by Dr. Annemarie Pugh, September 15, 2017. HISTORY: For details, please see the history and physical dated September 07, 2017. In brief, the patient is a 57-year-old female with a history of breast cancer diagnosed 10 years ago, who presented to the emergency department with jaundice. She was recently discovered to have tumors in bilateral breasts , as well as evidence of liver metastases and widely metastatic bony metastases. She underwent an ER CP at [facility] with Dr. Madrigal, with placement of a bile duct stent. Her bilirubin has continued to rise, and she was admitted to the hospital for further management. HOSPITAL COURSE: The patient was admitted to the Oncology Unit. Gastroenterology, Oncology and Surg ical consults were obtained. She ultimately underwent ERCP with replacement of her hepatic duct sten ts. Her bilirubin has trended down nicely from 13.9 on admission to 4.4 on the day of discharge. Leslie regalado has been able to tolerate a full diet since the stent placement. She completed 7 days of Zosyn pos t stent placement. Given the recurrent breast masses, she underwent ultrasound-guided biopsy, which was positive for invasive ductal carcinoma. She was also noted to have tongue deviation, and a brain MRI confirmed metastatic disease, likely contributing to a 12th cranial nerve lesion. She then unde rwent a lumbar puncture to rule out meningeal carcinomatosis. Her cerebrospinal fluid was negative f or malignant cells. On the day prior to discharge, she had a port placement without complications. I anticipate we will remove her PICC line prior to discharge now that she has a port. She will have close followup with Dr. Garcia in the outpatient clinic for further plans for systemic treatment now that her liver function is improving. On the day of discharge, vital signs are stable. The patient is tolerating a full diet, feels well. Her pain is controlled. DISPOSITION: Patient is discharged home in stable condition. FOLLOWUP: 1. Dr. Mitch Garcia, [facility]. 2. Dr. Prakash Alcala, Primary Care. DISCHARGE MEDICATIONS: Please see [facility] for completed outpatient medication list. New medications on discharge include: 1. Nystatin 100,000 units p.o. q.i.d., #30 mL, with no refills, with instructions to treat until 72 hours after resolution of thrush. 2. Senokot-S 1-2 tabs p.o. b.i.d. She will continue all other outpatient medications as previously prescribed, including Wellbutrin, Cy mbalta, hydroxyzine, Pristiq, T3/T4 compounded, and oxycodone IR p.r.n. /[id number]/MODL
--- NOTE | 2017-09-16 13:43 | SOAPPROG ---
SOAP Progress Note Assessment/Plan: Assessment: s/p port. Doing well F/U prn Incision cdi May shower Plan: 09/15/17 13:06 09/16/17 13:43 Objective: Vital Signs Temp Pulse Resp BP Pulse Ox 37.1 C 82 16 122/76 H 92 09/16/17 07:55 09/16/17 07:55 09/16/17 07:55 09/16/17 07:55 09/16/17 07:55 Laboratory Results 09/16/17 05:55 09/16/17 05:55 09/15/17 09/16/17 09/17/17 05:59 05:59 05:59 Intake Total 950 1660 60 Output Total 2850 2000 Balance -1900 -340 60 PT 12.0 SEC (12.0-15.0) 09/08/17 06:25 INR 0.87 (0.83-1.16) 09/08/17 06:25 ICD10 Worksheet Patient Problems: Problems Problem Status Onset Liver mass Acute
== END 2017-09-16 11:53 | disposition home or self-care (01) | DRG 435 ==
LOC: OBSVTOIN 16:39 → F3E 16:39 → F1N 09-08 16:35
PROVIDERS: ADMIT Internal Medicine; ATTEND Hospitalist
PROC: 02HV33Z Insertion of Infusion Device into Superior Vena Cava, Percutaneous Approach (ICD-10-PCS; 2017-09-08)
PROC: 009U3ZX Drainage of Spinal Canal, Percutaneous Approach, Diagnostic (ICD-10-PCS; 2017-09-08)
PROC: 3E03305 Introduction of Other Antineoplastic into Peripheral Vein, Percutaneous Approach (ICD-10-PCS; 2017-09-08)
PROC: 0HBU3ZX Excision of Left Breast, Percutaneous Approach, Diagnostic (ICD-10-PCS; 2017-09-09)
PROC: 0FPB8DZ Removal of Intraluminal Device from Hepatobiliary Duct, Via Natural or Artificial Opening Endoscopic (ICD-10-PCS; principal; 2017-09-09 15:30)
PROC: 0FC78ZZ Extirpation of Matter from Common Hepatic Duct, Via Natural or Artificial Opening Endoscopic (ICD-10-PCS; principal; 2017-09-09 15:30)
PROC: 0FHB8DZ Insertion of Intraluminal Device into Hepatobiliary Duct, Via Natural or Artificial Opening Endoscopic (ICD-10-PCS; principal; 2017-09-09 15:30)
PROC: 06H033Z Insertion of Infusion Device into Inferior Vena Cava, Percutaneous Approach (ICD-10-PCS; 2017-09-15)
DX: C78.7 Secondary malignant neoplasm of liver and intrahepatic bile duct (principal); K83.1 Obstruction of bile duct; C79.51 Secondary malignant neoplasm of bone; C50.412 Malignant neoplasm of upper-outer quadrant of left female breast; B37.0 Candidal stomatitis; N63.13 Unspecified lump in the right breast, lower outer quadrant; R47.1 Dysarthria and anarthria; R20.0 Anesthesia of skin; F32.9 Major depressive disorder, single episode, unspecified; Z87.891 Personal history of nicotine dependence
CPT/HCPCS: 92610-GN; 97161-GP; A9537; A9585; C1751; C1769; C1788; C2625; J1100; J1453; J1610; J1642; J1650; J2060; J2250; J2405; J2469; J2543; J2550; J2704; J3010; J3475; J3480; J9060; Q9961

== ENCOUNTER 2017-11-22 11:33 | Emergency (ER) | payer OTHER ==
--- NOTE | 2017-11-22 12:11 | EDPHY ---
H & P Stated Complaint: says fell last pm, abrasions to R forearm, concerned about poss R hand fx Time Seen by Provider: 11/22/17 12:10 HPI/ROS: HPI: This is a 57-year-old female who presents with Chief Complaint: says fell last pm, abrasions to R forearm, concerned about poss R hand fx Location: Right forearm, right fingers, left finger Quality: Injury Duration: Last night Signs and Symptoms: No bleeding, no radiation, no numbness, no weakness, no tingling, no incontinence, no decreased range of motion, no swelling, + pain, no fever Timing: Acute Severity: [id number] Context: Patient reports that she has a stone closure around her hot tub and as she was getting out of it, she accidentally slipped on the steps. She reports she misstepped as it was dark out and landed on her bilateral hands wrist and forearms in the yard foliage yesterday evening. Denies LOC/head injury/neck pain/dizziness/nausea/vomiting/amnesia. She sustained a small abrasion to her right forearm but she is most concerned with her right 4th and 5th digits at the base as well as her base of left thumb. These areas are bruised with tenderness. She is currently on chemotherapy for breast cancer. She is unsure of her tetanus status. Patient reports that due to chemotherapy she has been advised to avoid any Tylenol products. She did take oxycodone 5 mg pill last night to help her sleep which gave her moderate relief. She reports she only has 4 pills left and she is requesting a few more. Modifying Factors: She cleaned her abrasion with soap and water and applied a Band-Aid Comment: ROS: see HPI Constitutional: No fever, no chills, no weight loss Eyes: No blurred vision Respiratory: No shortness of breath, no cough Cardiovascular: No chest pain Gastrointestinal: No nausea, no vomiting no diarrhea Genitourinary: No dysuria Extremities: No myalgias Neurologic: No weakness, no numbness Skin: No rashes Hematologic: + bruising, no bleeding MEDICAL/SURGICAL/SOCIAL HISTORY: Medical/surgical history: Breast CA (2007) - metast to bones, Ariella, x2 C- sections, Uterine fibroid surg x2, L shoulder surg, jaw recessed with x2 pins bilateral jaw, ERCP, liver biopsy, depression Social history: . CONSTITUTIONAL: Extremely polite and cooperative adult white female, awake and alert, no obvious distress HEENT: Atraumatic and normocephalic. NECK: supple, no midline tenderness, flexion 45 degrees, extension 45 degrees, right and left lateral flexion 45 degrees. No meningismus. Cardiovascular: Normal S1/S2, regular rate, regular rhythm, without murmur rub or gallop. PULMONARY/CHEST: Symmetrical and nontender. no crepitus. Clear to auscultation bilaterally. Good air movement. No accessory muscle usage. ABDOMEN: Soft, nondistended, nontender, no ecchymosis. PELVIC: no pain with rocking; bilateral hips flexion 125 degrees, extension 30 degrees, with no pain internal rotation and no pain external rotation. BACK: No midline tenderness, no paraspinous spasm, deep tendon reflexes 2/2, no pain with straight leg raise, No foot drop. Achilles reflexes are equal bilaterally. Able to walk on heels and toes without difficulty. EXTREMITIES: 2/2 pulses, strength 5/5, right 4th and 5th MCP joints are tender to palpation; left thumb at the base is tender to palpation with ecchymosis; DIP /PIP/MCP flexion/extension intact with good light touch sensation. no deformities, no clubbing, no cyanosis or edema. NEUROLOGICAL: no focal neuro deficits. GCS 15. Light touch sensation intact. SKIN: Warm and dry, no erythema. no rash. Good capillary refill. Source: Patient Exam Limitations: No limitations - Personal History Current Tetanus Diphtheria and Acellular Pertussis (TDAP): Unsure - Medical/Surgical History Hx Asthma: No Hx Chronic Respiratory Disease: No Hx Diabetes: No Hx Cardiac Disease: No Hx Renal Disease: No Hx Cirrhosis: No Hx Alcoholism: No Hx HIV/AIDS: No Hx Splenectomy or Spleen Trauma: No Other PMH: Breast CA (2007) - metast to bones, Ariella, x2 C-sections, Uterine fibroid surg x2, L shoulder surg, jaw recessed with x2 pins bilateral jaw, ERCP , liver biopsy, depression - Social History Smoking Status: Former smoker Constitutional: Initial Vital Signs Temperature (C) 36.5 C 11/22/17 11:52 Heart Rate 93 11/22/17 11:52 Respiratory Rate 16 11/22/17 11:52 Blood Pressure 120/86 H 11/22/17 11:52 O2 Sat (%) 98 11/22/17 11:52 O2 Delivery Mode Room Air Allergies/Adverse Reactions: levofloxacin Allergy (Verified 11/22/17 11:56) Anaphylaxis Sulfa (Sulfonamide Antibiotics) Allergy (Verified 11/22/17 11:56) Hives Home Medications: Medication Instructions Recorded Desvenlafaxine Succinate [Pristiq] 25 mg PO DAILY 09/07/17 buPROPion XL [Wellbutrin 150mg XL] 150 mg PO DAILY 09/07/17 hydrOXYzine HCL [hydrOXYzine HCL 25 mg PO Q4 PRN 09/07/17 (RX)] oxyCODONE IR [Oxycodone Ir (*)] 5 - 10 mg PO Q4 PRN 09/07/17 Sennosides/Docusate Sodium 1 - 2 tab PO BID tab 09/16/17 [Senokot-S] oxyCODONE IR [Oxycodone Ir (*)] 5 mg PO Q6 PRN #10 tab 11/22/17 Medical Decision Making - Diagnostics Imaging Results: Imaging Impressions Forearm X-Ray 11/22/17 12:38 Impression: No acute osseous findings. Hand X-Ray 11/22/17 12:38 Impression: 1. No acute osseous findings. 2. 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 3. Additional findings as above. Hand X-Ray 11/22/17 12:38 Impression: 1. No acute osseous findings. 2. 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 3. Additional findings as above. Procedures: Procedure: Splint placement. A right Velcro volar wrist splint was applied by the Emergency Room commercial tire service technician. After application of the splint I returned and re-examined the patient. The splint was adequately immobilizing the joint and distal to the splint the patient's circulation and sensation was intact. ED Course/Re-evaluation: Right hand x-ray, left hand x-ray, right forearm x-ray ordered Tetanus booster given Fall was accidental in nature. No signs of syncope/chest pain/dizziness. Bilateral hand x-rays my read show no fracture, dislocation. + Degenerative changes noted. Right forearm x-ray my read shows no fracture. Due to tenderness in the 4th and 5th MCP base; placed in Velcro wrist splint. No signs of neurovascular compromise/tenting of skin/compartment syndrome/ extremities and joints examined above and below area of concern and are neurovascularly intact. This patient was seen under the supervision of my secondary supervising physician. I evaluated care for this patient independently. Discussed this patient with Dr. Koch. Differential Diagnosis: Differential diagnosis includes but is not limited to phalanx fracture, radial fracture, ulnar fracture, tendon injury, nerve injury. - Data Points Medications Given: Discontinued Medications Diphtheria/Tetanus/Acell Pertussis (Boostrix) 0.5 ml IM .ONCE ONE Stop: 11/22/17 12:39 Last Admin: 11/22/17 12:42 Dose: 0.5 ml Departure - Departure Disposition: Home, Routine, Self-Care Clinical Impression: Abrasion of right forearm, initial encounter Finger contusion Qualifiers: Encounter type: initial encounter Finger: unspecified finger Damage to nail status: without damage Qualified Code(s): S60.00XA - Contusion of unspecified finger without damage to nail, initial encounter Sprain of finger Qualifiers: Encounter type: initial encounter Finger: little finger Sprain of finger site: other site Laterality: unspecified laterality Qualified Code(s): S63.698A - Other sprain of other finger, initial encounter Condition: Good Instructions: Oxycodone, Rapid Release (By mouth), Finger Sprain (ED), Abrasion (ED) Additional Instructions: Wear the Velcro wrist splint while out of bed until pain free. Use Oxycodone every 6 hours as needed for severe/break through pain. Apply ice for 30 minutes at a time; 2-3 times per day for the next 1-2 days. The x-rays obtained in the emergency department today demonstrate no evidence of an obvious fracture. Sometimes fractures are not obvious on the initial set of x-rays performed in the ED. For this reason, you should have repeat x-rays performed in 7-10 days if you are having any pain exclude the possibility of an occult fracture. Return to the ER immediately if you experience new or worsening pain, discoloration, numbness, tingling, or any other symptoms that concern you. Referrals: KATELIN AREVALO [Primary Care Provider] - As per Instructions Prescriptions: oxyCODONE IR [Oxycodone Ir (*)] 5 mg PO Q6 PRN #10 tab PRN Reason: Pain, Breakthrough
[2017-11-22] MEDS ORDERED: TDAP ADULT 0.5 ML INJ (BOOSTRIX) IM ONE (12:38)
[2017-11-22 13:50] VITALS: BP 135/75
== END 2017-11-22 13:50 | disposition home or self-care (01) ==
DX: S50.811A Abrasion of right forearm, initial encounter (principal); S60.141A Contusion of right ring finger with damage to nail, initial encounter; S63.696A Other sprain of right little finger, initial encounter; W18.43XA Slipping, tripping and stumbling without falling due to stepping from one level to another, initial encounter; Y92.009 Unspecified place in unspecified non-institutional (private) residence as the place of occurrence of the external cause; Z23 Encounter for immunization
CPT/HCPCS: L3984

== ENCOUNTER → 2018-05-09 | Outpatient (CLI) | payer OTHER ==
[~2018-05-09] MED LIST: IOPAMIDOL (ISOVUE 370) 100 ML BTL IV ONE
== END ==
LOC: FIMAGING 12:55
PROVIDERS: ATTEND Internal Medicine Hematology & Oncology
DX: Z45.2 Encounter for adjustment and management of vascular access device (principal)
CPT/HCPCS: Q9967